=== PATIENT | male | born 1970 | race Caucasian/White ===

== ENCOUNTER 2016-10-16 15:12 | Emergency (ER) | payer MEDICAID ==
[~2016-10-16] VITALS: Ht 180.3 cm; Wt 112.0 kg
[2016-10-16 15:47] VITALS: BP 142/74
[2016-10-16] MEDS ORDERED: TETANUS-DIPTH-ACEL PERTUSSIS 0.5ML SYRG IM ONE (16:30)
== END 2016-10-16 16:54 | disposition home or self-care (01) ==
LOC: ER 15:25
DX: S61.305A Unspecified open wound of left ring finger with damage to nail, initial encounter (principal); E78.5 Hyperlipidemia, unspecified; I10 Essential (primary) hypertension; Z23 Encounter for immunization; Z87.891 Personal history of nicotine dependence; W26.0XXA Contact with knife, initial encounter; Y93.89 Activity, other specified; Y99.8 Other external cause status; Y92.89 Other specified places as the place of occurrence of the external cause
CPT/HCPCS: 90471; 90715

== ENCOUNTER 2024-12-03 15:22 | Inpatient (IN) | payer MEDICAID ==
[~2024-12-03] VITALS: Ht 180.3 cm; Wt 110.0 kg
--- NOTE | 2024-12-03 16:58 | ED.PDOC ---
GI ASSESSMENT HPI Comments This is a 54 year old male presenting to the ED with chief complaint of abdominal pain. Patient reports that he has been experiencing lower abdominal pain for the past 2 days, noting a 6/10 in pain. Patient relays that his pain is now a 5/10. Patient denies any N/V/D, fever, chills, or blood in his stools. Chief Complaint: Abdominal Pain Time Seen by MD: 16:57 Primary Care Provider: NONE Reviewed Notes: Nurses Notes, Medications, Allergies Allergies: Coded Allergies: NO KNOWN ALLERGIES (Unverified , 07/27/13) Information Source: Patient Mode of Arrival: Ambulatory Timing: Days Duration: Since onset Prehospital treatment: None Quality: Aching Vomitus: None Stool: Normal Severity: Moderate Recent: None Recent Hx of: None Pain Location: Suprapubic Modifying Factors: Nothing Associated sign and symptoms: Abdominal Pain Past Medical History PAST MEDICAL HISTORY: High Lipids, HTN Surgical History: Denies all surgeries Family History Family History: Reviewed,noncontributory to illness, No family hx of DM Family History (Other): HLD Social History Smoker: Quit Greater Than 1 Year Alcohol: Denies ETOH Use Drugs: Denies Drug Use Lives In: Home Constitutional: denies: chills, diaphoresis, fatigue, fever, malaise, sweats, weakness, others EENTM: denies: blurred vision, double vision, ear bleeding, ear discharge, ear drainage, ear pain, ear ringing, eye pain, eye redness, hearing loss, mouth pain, mouth swelling, nasal discharge, nose bleeding, nose congestion, nose pain, photophobia, tearing, throat pain, throat swelling, voice changes, others Respiratory: denies: cough, hemoptysis, orthopnea, SOB at rest, shortness of breath, SOB with excertion, stridor, wheezing, others Cardiovascular: denies: chest pain, dizzy spells, diaphoresis, Dyspnea on exertion, edema, irregular heart beat, left arm pain, lightheadedness, palpitations, PND, syncope, others Gastrointestinal: reports: abdominal pain; denies: abdomen distended, blood streaked bowels, constipated, diarrhea, dysphagia, difficulty swallowing, hematemesis, melena, nausea, poor appetite, poor fluid intake, rectal bleeding, rectal pain, vomiting, others Genitourinary: denies: burning, dysuria, flank pain, frequency, hematuria, incontinence, penile discharge, penile sore, pain, testicle pain, testicle swelling, urgency, others Neurological: denies: dizziness, fainting, headache, left sided numbness, left sided weakness, numbness, paresthesia, pre-existing deficit, right sided numbness, right sided weakness, seizure, speech problems, tingling, tremors, weakness, others Musculoskeletal: denies: back pain, gout, joint pain, joint swelling, muscle pain, muscle stiffness, neck pain, others Integumetry: denies: bruises, change in color, change in hair/nails, dryness, laceration, lesions, lumps, rash, wounds, others Allergic/Immunocompromised: denies: Difficulty Healing, Frequent Infections, Hives, Itching, others Hematologic/Lymphatic: denies: anemia, blood clots, easy bleeding, easy bruising, swollen glands, others Endocrine: denies: excessive hunger, excessive sweating, excessive thirst, excessive urination, flushing, intolerance to cold, intolerance to heat, unexplained weight gain, unexplained weight loss, others Psychiatric: denies: anxiety, bipolar disorder, depression, hopeless, panic disorder, schizophrenia, sleepless, suicidal, others All Other Systems: Reviewed and Negative Physical Exam General Appearance: Moderate Distress HEENT: Normal ENT Inspection, Pharynx Normal, TMs Normal Neck: Full Range of Motion, Non-Tender, Normal, Normal Inspection Respiratory: Chest Non-Tender, Lungs Clear, No Accessory Muscle Use, No Resp iratory Distress, Normal Breath Sounds Cardiovascular: No Edema, No JVD, No Murmur, No Gallop, Normal Peripheral Pulses, Regular Rate/Rhythm Breast Exam: Deferred Gastrointestinal: LLQ, No Organomegaly, No Pulsatile Mass, Normal Bowel Sounds, Soft, Tenderness Genitalia: Deferred Pelvic: Deferred Rectal: Deferred Extremities: No calf tenderness, Normal capillary refill, Normal inspection, Normal range of motion, Non-tender, No pedal edema Musculoskeletal : Apperance: Normal Neurologic: Alert, car washer II-XII nml as Tested, No Motor Deficits, Normal Affect, Normal Mood, No Sensory Deficits Cerebellar Function: Normal Reflexes: Normal Skin: Dry, Normal Color, Warm Lymphatic: No Adenopathy Was a procedure done? Was a procedure done?: No GI differential Dx Differential Diagnosis: Diverticular disease, Gastritis/PUD, Gastroenteritis, Ischemic Bowel, Pancreatitis, UTI, Electrolyte Imbalance, Food Poisoning X-Ray, Labs, Meds, VS Vital Signs Date Time Temp Pulse Resp B/P (MAP) Pulse Ox O2 Delivery O2 Flow Rate FiO2 12/03/24 18:37 98.0 91 16 118/77 (91) 98 98.0 12/03/24 15:23 98.1 85 16 147/72 97 98.1 Lab Test 12/03/24 17:23 Range/Units White Blood Count 13.2 H 4.4-10.8 10^3/uL Red Blood Count 5.54 4.5-5.90 10^6/uL Hemoglobin 16.5 13.5-17.5 g/dL Hematocrit 48.5 41.0-53.0 % Mean Corpuscular Volume 87.5 80.0-100.0 fL Mean Corpuscular Hemoglobin 29.8 28.0-32.0 pg Mean Corpuscular Hemoglobin Concent 34.0 32.0-36.0 g/dL Red Cell Distribution Width 14.2 11.8-14.3 % Platelet Count 310 140-450 10^3/uL Mean Platelet Volume 8.0 6.9-10.8 fL Neutrophils (%) (Auto) 73.5 37.0-80.0 % Lymphocytes (%) (Auto) 15.5 10.0-50.0 % Monocytes (%) (Auto) 8.8 0.0-12.0 % Eosinophils (%) (Auto) 1.8 0.0-7.0 % Basophils (%) (Auto) 0.4 0.0-2.0 % Neutrophils # (Auto) 9.7 H 1.6-8.6 10 ^3/uL Lymphocytes # (Auto) 2.0 0.4-5.4 10 ^3/uL Monocytes # (Auto) 1.2 0-1.3 10 ^3/uL Eosinophils # (Auto) 0.2 0-0.8 10 ^3/uL Basophils # (Auto) 0.1 0-0.2 10 ^3/uL Nucleated Red Blood Cells 0.0 % Sodium Level 137 136-145 mmol/L Potassium Level 4.5 3.5-5.1 mmol/L Chloride Level 99 98-107 mmol/L Carbon Dioxide Level 28 20-31 mmol/L Anion Gap 10 5-15 Blood Urea Nitrogen 7 L 9-23 mg/dL Creatinine 0.94 0.700-1.30 mg/dL Glomerular Filtration Rate Calc 96 >90 mL/min BUN/Creatinine Ratio 7.4 L 10.0-20.0 Serum Glucose 115 H 74-106 mg/dL Calcium Level 9.9 8.7-10.4 mg/dL Lipase 37 12-53 U/L Current Medications Medications (Trade) Dose Ordered Sig/Beto Route Start Time Stop Time Status Last Admin Sodium Chloride 500 ml @ 500 mls/hr Q1H ONCE IVB 12/03/24 17:00 12/03/24 17:59 DC 12/03/24 18:45 Ondansetron HCl (Zofran) 4 mg ONCE ONCE IV 12/03/24 18:15 12/03/24 18:16 DC 12/03/24 18:45 Metronidazole 100 ml @ 100 mls/hr ONCE ONCE IV 12/03/24 18:15 12/03/24 19:14 12/03/24 18:47 Ketorolac Tromethamine (Toradol Injection) 30 mg ONCE ONCE IV 12/03/24 18:45 12/03/24 18:46 DC 12/03/24 18:48 IV Hep-Lock was established. The patient was given normal saline at a 500 cc bolus. The patient was given Zofran 4 mg IV push for the nausea The patient was given ketorolac 30 mg IV push for the pain The patient's CBC shows an elevated white blood cell count of 13.2 The chemistry panel is within normal limits The CAT scan of the abdomen and pelvis shows: IMPRESSION: 1. Inflammatory stranding along the mesenteric margin of the mid sigmoid colon compatible with epiploic appendagitis versus diverticulitis. The patient is still having persistent pain The patient is being admitted to the hospitalist with a diagnosis of intractable abdominal pain and diverticulitis Images Reviewed?: Images reviewed and evaluated by me Time of 1ST Reevaluation: 18:59 Reevaluation 1ST: Unchanged Patient Education/Counseling: Diagnosis, Treatment, Prognosis Family Education/Counseling: No Family Present SEPSIS Sepsis Screen Date sepsis recognized/suspect: Dec 03, 2024 Time Sepsis recognized/suspect: 1523 Recent Procedure: No On Antibiotic Therapy: No Respiratory Rate >20: No Heart Rate >90: No Temp<36 C (96.8 F) or >38.3 C: No SBP <90 or MAP <65 mmHG: No New Acute Mental Status Change: No Is the patient on CPAP, BIPAP,: No Physician Orders Urinalysis (12/03/24 16:50) Ct Ab Pel Wo Con-No Oral Or Iv (12/03/24 16:50) Heplock Iv (12/03/24 16:50) Metronidazole 500mg/100ml (Flagyl 500mg/ (12/03/24 18:15) Vital Signs Date Time Temp Pulse Resp B/P (MAP) Pulse Ox O2 Delivery O2 Flow Rate FiO2 12/03/24 18:37 98.0 91 16 118/77 (91) 98 98.0 12/03/24 15:23 98.1 85 16 147/72 97 98.1 Laboratory Tests Test 12/03/24 17:23 White Blood Count 13.2 10^3/uL (4.4-10.8) H Medications Medications Dose Ordered Sig/Beto Route Start Time Stop Time Status Last Admin Dose Admin Ketorolac Tromethamine 30 mg ONCE ONCE IV 12/03/24 18:45 12/03/24 18:46 DC 12/03/24 18:48 Metronidazole 100 ml @ 100 mls/hr ONCE ONCE IV 12/03/24 18:15 12/03/24 19:14 12/03/24 18:47 Ondansetron HCl 4 mg ONCE ONCE IV 12/03/24 18:15 12/03/24 18:16 DC 12/03/24 18:45 Sodium Chloride 500 ml @ 500 mls/hr Q1H ONCE IVB 12/03/24 17:00 12/03/24 17:59 DC 12/03/24 18:45 Departure 1 Departure Time of Disposition: 18:59 Impression: Primary Impression: Intractable abdominal pain Additional Impression: Acute diverticulitis Disposition: ADMITTED INPATIENT Admit to: Med Surg Condition: Fair Critical Care Note Critical Care Time?: No Stability Stability form required: No Heart Score Heart Score: Heart Score Response (Comments) Value History N/A 0 EKG N/A 0 Age N/A 0 Risk Factors N/A 0 Troponin N/A 0 Total 0 I personally scribed for MOOKIE ANGUIANO MD ([email or web address]) on 12/03/24 at 16:58. Electronically submitted by Nain [email or web address]). MOOKIE ANGUIANO MD Dec 03, 2024 16:58
--- NOTE | 2024-12-03 17:39 | DVH ---
EXAM: CT CT AB PEL WO CON-NO ORAL OR IV INDICATION: pain TECHNIQUE: Volumetric multidetector CT images of the abdomen and pelvis were obtained without contras t. All CT scans at this facility use dose modulation, iterative reconstruction, and/or weight based d osing when appropriate to reduce radiation dose to as low as reasonably achievable. COMPARISON: None FINDINGS: [LOWER CHEST]: The partially visualized lung bases are clear without a pleural effusion. The cardiac size is normal without pericardial effusion. [LIVER]: Hepatic steatosis [GALLBLADDER AND BILIARY TREE]: No cholelithiasis. [SPLEEN]: Unremarkable. [PANCREAS]: Unremarkable. [ADRENAL GLANDS]: Unremarkable [KIDNEYS]: No hydronephrosis. No nephroureterolithiasis. No suspicious focal lesion. [BLADDER]: Unremarkable for the degree distention. [REPRODUCTIVE ORGANS]: Unremarkable. [BOWEL/MESENTERY]: Stomach is normal. Significant inflammatory stranding compatible with the appearan ce of epiploic appendagitis along the mesenteric margin of the mid sigmoid colon. Alternatively this may represent diverticulitis. No intraperitoneal free air. [ASCITES]: Absent [LYMPHADENOPATHY]: No pathologically enlarged lymph nodes by CT size criteria [VASCULATURE]: No aneurysmal dilatation. [ABDOMINAL WALL]: Small fat containing bilateral inguinal hernias [MUSCULOSKELETAL]: No acute fracture or aggressive focal osseous lesion. Multifocal degenerative sandoval ge of the visualized spine. IMPRESSION: 1. Inflammatory stranding along the mesenteric margin of the mid sigmoid colon compatible with epiplo ic appendagitis versus diverticulitis.
[2024-12-03 18:02] LABS: Hematocrit 48.5 % (41.0-53.0); Hemoglobin 16.5 g/dL (13.5-17.5); Mean Corpuscular Hemoglobin 29.8 pg (28.0-32.0); Mean Corpuscular Volume 87.5 fL (80.0-100.0); Nucleated Red Blood Cells % 0.0 %
[2024-12-03 18:09] LABS: Chloride 99 mmol/L (98-107); Potassium 4.5 mmol/L (3.5-5.1); Sodium 137 mmol/L (136-145)
[2024-12-03 18:10] LABS: Anion Gap 10 (5-15); Carbon Dioxide 28 mmol/L (20-31)
[2024-12-03 18:11] LABS: Calcium 9.9 mg/dL (8.7-10.4)
[2024-12-03 18:15] LABS: BUN/Creatinine Ratio 7.4 (10.0-20.0)
[2024-12-03 18:16] LABS: Blood Urea Nitrogen 7 mg/dL (9-23); Glucose 115 mg/dL (74-106); Lipase 37 U/L (12-53)
[2024-12-03] MEDS: MORPHINE SULFATE 4 MG/ML SYR/VIAL IV ONE (18:38)
[2024-12-03] MEDS: ONDANSETRON HCL 4 MG/2 ML VIAL IV ONE (18:45)
[2024-12-03] MEDS: SODIUM CHLORIDE 0.9% 500 ML IVB ONE (18:45)
[2024-12-03] MEDS: KETOROLAC TROMETH 30 MG/ML 1ML VIAL IV ONE (18:48)
[2024-12-03] MEDS: fentaNYL CITRATE 100 MCG/2 ML VL IV ONE (23:19)
[2024-12-03] MEDS: HYDROcodone-ACET 5/325MG TAB PO ONE (23:45)
[2024-12-04] VITALS (7 sets, daily range): BP systolic 97–116; BP diastolic 57–77; PULSE 79–92; RESP 18–19; TEMP 97.3–98.3; O2SAT 93–96
--- NOTE | 2024-12-04 01:14 | DVHHP2 ---
History of Present Illness Reason for Visit: Intractable abdominal pain History of Present Illness The patient is a 54-year-old male with past medical history of hyperlipidemia and hypertension who presented to [facility] ED with complaint of abdominal pain. Patient reports he has been experiencing lower abdominal pain radiating to his back for the past 2 days, rating 6/10 numeric scale. Patient was seen and evaluated in the ED, laboratory data shows WBC 13.2, platelets 310, sodium 137, potassium 4.5, BUN seven, creatinine 0.94, glucose 115, calcium 9.9, lipase 37, blood pressure 121/76, heart rate 84, temperature 98.0 F, O2 saturation 99% on room air. Abdomen/pelvis CT revealing inflammatory stranding along the mesenteric margin of the mid sigmoid colon compatible with epiploic appendicitis versus diverticulitis. Patient was started on IV antibiotic regimen Flagyl, please see medication orders section in the computer. On my assessment, patient denied chest pain, no headache, no dizziness, no shortness of breaths, no diarrhea, no nausea, no vomiting, no fever, no chills. Patient was admitted for further evaluation and medical management. Past Medical History High Lipids, HTN Past Surgical History Denies all surgeries Family History Reviewed, noncontributory to the management of this case. Past Social History The patient lives at home, denies smoking, alcohol or illicit drugs abuse. Review of Systems Constitutional: No: Fever, Chills, Sweats, Weakness, Malaise, Other Eyes: No: Pain, Vision change, Conjunctivae inflammation, Eyelid inflammation, Other, Redness ENT: No: Ear pain, Ear discharge, Nose pain, Nose discharge, Nose congestion, Mouth pain, Mouth swelling, Throat pain, Throat swelling, Other Respiratory: No: Cough, Dry, Shortness of breath, SOB with excertion, Wheezing, Hemoptysis, Pleuritic Pain, Sputum, Wheezing, Other Cardiovascular: No: Chest Pain, Palpitations, Orthopnea, Paroxysmal Noc. Dyspnea, Edema, Lt Headedness, Other Gastrointestinal: Abdominal Pain; No: Nausea, Vomiting, Diarrhea, Constipation, Melena, Hematochezia, Other Genitourinary: No Dysuria, No Frequency, No Incontinence, No Hematuria, No Retention, No Other Musculoskeletal: back pain; No: other, neck pain, shoulder pain, arm pain, hand pain, leg pain, foot pain Skin: No: Rash, Lesions, Jaundice, Bruising, Other Neurological: No: Weakness, Numbness, Incoordination, Change in speech, Confusion, Seizures, Other Allergies: Coded Allergies: NO KNOWN ALLERGIES (Unverified , 07/27/13) Exam Vital Signs Vital Signs Date Time Temp Pulse Resp B/P (MAP) Pulse Ox O2 Delivery O2 Flow Rate FiO2 12/04/24 01:05 98.7 89 18 130/73 (92) 96 98.7 12/03/24 23:46 Room Air* 0 21 General Appearance: Alert, Oriented X3, Cooperative, No acute distress HEENT: Atraumatic, PERRLA, EOMI, Mucous membr. moist/pink Respiratory: Normal air movement Cardiovascular: Regular rate, Normal S1, Normal S2, No murmurs Abdominal: Normal bowel sounds, Soft, No tenderness, No hepatospenomegaly, No masses Extremities: No clubbing, No cyanosis, No edema, Normal pulses, No tenderness/swelling Skin: No rashes, No breakdown, No significant lesion Neuro: Normal gait, Normal speech, Strength at 5/5 X4 ext, Normal tone, Sensation intact, Cranial nerves 3-12 NL, Reflexes 2+ Psych/Mental Status: Mental status NL, Mood NL Labs/Xrays Labs Test 12/03/24 17:23 Range/Units White Blood Count 13.2 H 4.4-10.8 10^3/uL Red Blood Count 5.54 4.5-5.90 10^6/uL Hemoglobin 16.5 13.5-17.5 g/dL Hematocrit 48.5 41.0-53.0 % Mean Corpuscular Volume 87.5 80.0-100.0 fL Mean Corpuscular Hemoglobin 29.8 28.0-32.0 pg Mean Corpuscular Hemoglobin Concent 34.0 32.0-36.0 g/dL Red Cell Distribution Width 14.2 11.8-14.3 % Platelet Count 310 140-450 10^3/uL Mean Platelet Volume 8.0 6.9-10.8 fL Neutrophils (%) (Auto) 73.5 37.0-80.0 % Lymphocytes (%) (Auto) 15.5 10.0-50.0 % Monocytes (%) (Auto) 8.8 0.0-12.0 % Eosinophils (%) (Auto) 1.8 0.0-7.0 % Basophils (%) (Auto) 0.4 0.0-2.0 % Neutrophils # (Auto) 9.7 H 1.6-8.6 10 ^3/uL Lymphocytes # (Auto) 2.0 0.4-5.4 10 ^3/uL Monocytes # (Auto) 1.2 0-1.3 10 ^3/uL Eosinophils # (Auto) 0.2 0-0.8 10 ^3/uL Basophils # (Auto) 0.1 0-0.2 10 ^3/uL Nucleated Red Blood Cells 0.0 % Sodium Level 137 136-145 mmol/L Potassium Level 4.5 3.5-5.1 mmol/L Chloride Level 99 98-107 mmol/L Carbon Dioxide Level 28 20-31 mmol/L Anion Gap 10 5-15 Blood Urea Nitrogen 7 L 9-23 mg/dL Creatinine 0.94 0.700-1.30 mg/dL Glomerular Filtration Rate Calc 96 >90 mL/min BUN/Creatinine Ratio 7.4 L 10.0-20.0 Serum Glucose 115 H 74-106 mg/dL Calcium Level 9.9 8.7-10.4 mg/dL Lipase 37 12-53 U/L PATIENT: WALDEMAR GORDON ACCT: [id number] UNIT: [id number] : 1970 LOC: ER ROOM / BED: / AGE / SEX: 54 / M ADM STATUS: REG ER SERVICE 1650 ORDERING PHYSICIAN: MOOKIE ANGUIANO MD PROCEDURE(s): ABPL - CT AB PEL WO CON-NO ORAL OR IV REASON: pain ORDER NUMBER(s): [id number], ACCESSION NUMBER(s): [id number] EXAM: CT CT AB PEL WO CON-NO ORAL OR IV INDICATION: pain TECHNIQUE: Volumetric multidetector CT images of the abdomen and pelvis were obtained without contrast. All CT scans at this facility use dose modulation, iterative reconstruction, and/or weight based dosing when appropriate to reduce radiation dose to as low as reasonably achievable. COMPARISON: None FINDINGS: [LOWER CHEST]: The partially visualized lung bases are clear without a pleural effusion. The cardiac size is normal without pericardial effusion. [LIVER]: Hepatic steatosis [GALLBLADDER AND BILIARY TREE]: No cholelithiasis. [SPLEEN]: Unremarkable. [PANCREAS]: Unremarkable. [ADRENAL GLANDS]: Unremarkable [KIDNEYS]: No hydronephrosis. No nephro-ureterolithiasis. No suspicious focal lesion. [BLADDER]: Unremarkable for the degree distention. [REPRODUCTIVE ORGANS]: Unremarkable. [BOWEL/MESENTERY]: Stomach is normal. Significant inflammatory stranding compatible with the appearance of epiploic appendagitis along the mesenteric margin of the mid sigmoid colon. Alternatively this may represent diverticulitis. No intraperitoneal free air. [ASCITES]: Absent [LYMPHADENOPATHY]: No pathologically enlarged lymph nodes by CT size criteria [VASCULATURE]: No aneurysmal dilatation. [ABDOMINAL WALL]: Small fat containing bilateral inguinal hernias [MUSCULOSKELETAL]: No acute fracture or aggressive focal osseous lesion. Multifocal degenerative change of the visualized spine. IMPRESSION: 1. Inflammatory stranding along the mesenteric margin of the mid sigmoid colon compatible with epiploic appendagitis versus diverticulitis. SEPSIS Sepsis Screen Date sepsis recognized/suspect: Dec 03, 2024 Time Sepsis recognized/suspect: 1522 Recent Procedure: No On Antibiotic Therapy: No Respiratory Rate >20: No Heart Rate >90: No Temp<36 C (96.8 F) or >38.3 C: No SBP <90 or MAP <65 mmHG: No New Acute Mental Status Change: No Is the patient on CPAP, BIPAP,: No Physician Orders Complete Blood Count (12/04/24 04:00) Comprehensive Metabolic Panel (12/04/24 04:00) Ceftriaxone Ivpb Rocephin (12/04/24 09:00) Ceftriaxone Ivpb Rocephin (12/04/24 01:15) Metronidazole Ivpb Flagyl (12/04/24 06:00) Hydralazine Injection (Apresoline Inject (12/04/24 01:15) Vital Signs Date Time Temp Pulse Resp B/P (MAP) Pulse Ox O2 Delivery O2 Flow Rate FiO2 12/04/24 01:05 98.7 89 18 130/73 (92) 96 98.7 12/03/24 23:46 Room Air* 0 21 12/03/24 23:18 84 18 121/76 (91) 99 12/03/24 18:37 98.0 91 16 118/77 (91) 98 98.0 Laboratory Tests Test 12/03/24 17:23 White Blood Count 13.2 10^3/uL (4.4-10.8) H Medications Medications Dose Ordered Sig/Beto Route Start Time Stop Time Status Last Admin Dose Admin Acetaminophen/ Hydrocodone Bitart 1 tab ONCE ONCE PO 12/03/24 23:30 12/03/24 23:31 DC 12/03/24 23:45 1 TAB Ketorolac Tromethamine 30 mg ONCE ONCE IV 12/03/24 18:45 12/03/24 18:46 DC 12/03/24 18:48 30 MG Metronidazole 100 ml @ 100 mls/hr ONCE ONCE IV 12/03/24 18:15 12/03/24 19:14 DC 12/03/24 18:47 100 MLS/HR Ondansetron HCl 4 mg ONCE ONCE IV 12/03/24 18:15 12/03/24 18:16 DC 12/03/24 18:45 4 MG Sodium Chloride 500 ml @ 500 mls/hr Q1H ONCE IVB 12/03/24 17:00 12/03/24 17:59 DC 12/03/24 18:45 500 MLS/HR Assessment/Plan Assessment/Plan Intractable abdominal pain Appendicitis Acute diverticulitis Leukocytosis, unspecified Plan 1. Admit to med surge unit 2. Breathing treatment 3. Pain control management 4. IV antibiotic management 5. Management of fluids and electrolytes 6. Consultation for GI/surgery 7. Diagnostic test abdomen/pelvis CT 8. DVT prophylaxis-on SCDs 9. Repeat labs CBC, CMP in a.m. 10. Home medication reviewed and reconciled 11. Continue with current medical management 12. Treatment plan discussed with patient and RN. Patient verbalized understanding. Plan discussed with: Patient, Other (RN) My Orders Orders - YVONNE LUBIN DNP Procedure Category Date Status Time Complete Blood Count LAB 12/04/24 Verified 04:00 Comprehensive LAB 12/04/24 Verified Metabolic Panel 04:00 Ceftriaxone Ivpb PHA 12/04/24 Verified Rocephin 09:00 Ceftriaxone Ivpb PHA 12/04/24 Verified Rocephin 01:15 Metronidazole Ivpb PHA 12/04/24 Verified Flagyl 06:00 Hydralazine Injection PHA 12/04/24 Verified (Apresoline Inject 01:15 Problem List: (1) Intractable abdominal pain (2) Appendicitis (3) Acute diverticulitis (4) Leukocytosis, unspecified Date of Service: Dec 04, 2024 Billing Provider: YVONNE LUBIN DNP Common Visit Codes: [id number] INP/OBS CARE (HIGH) YVONNE LUBIN DNP Dec 04, 2024 01:14
[2024-12-04] MEDS ORDERED: ONDANSETRON HCL 4 MG/2 ML VIAL IV PRN (01:15)
[2024-12-04] MEDS ORDERED: MORPHINE SULFATE INJ 2 MG/ml SYRG IV PRN ×2 (01:15)
[2024-12-04] MEDS ORDERED: NITROGLYCERIN 0.4 MG SL TAB SL PRN (01:15)
[2024-12-04] MEDS ORDERED: hydrALAZINE HCL 20 MG/ML VL IV PRN (01:15)
[2024-12-04 02:16] LABS: Urine Protein, UAD Negative (Negative)
[2024-12-04 03:59] LABS: Hematocrit 45.2 % (41.0-53.0); Hemoglobin 15.5 g/dL (13.5-17.5); Mean Corpuscular Hemoglobin 30.3 pg (28.0-32.0); Mean Corpuscular Volume 88.2 fL (80.0-100.0); Nucleated Red Blood Cells % 0.0 %
[2024-12-04] MEDS: HYDROcodone-ACET 5/325MG TAB PO PRN (04:04)
[2024-12-04 04:12] LABS: Alanine Aminotransferase 23 U/L (7-40); Albumin 4.7 g/dL (3.2-4.8); Alkaline Phosphatase 81 U/L (46-116); Anion Gap 11 (5-15); BUN/Creatinine Ratio 6.7 (10.0-20.0); Calcium 9.8 mg/dL (8.7-10.4); Carbon Dioxide 25 mmol/L (20-31); Chloride 102 mmol/L (98-107); Potassium 4.2 mmol/L (3.5-5.1); Sodium 138 mmol/L (136-145); Total Protein 7.7 g/dL (5.7-8.2)
[2024-12-04 04:13] LABS: Bilirubin, Total 0.7 mg/dL (0.2-1.0)
[2024-12-04 04:14] LABS: Blood Urea Nitrogen 6 mg/dL (9-23); Glucose 123 mg/dL (74-106)
[2024-12-04] MEDS: SODIUM CHLORIDE 0.9% 1,000 ML IV SCH (08:46)
[2024-12-04] MEDS: ACETAMINOPHEN 325 MG TAB PO PRN (13:20)
--- NOTE | 2024-12-04 13:20 | DVHINCON2 ---
GI Consult Consult Note GI consult note Date of Consultation: 12/04/2024 Chief Complaint: Diverticulitis Referring Physician: Mildred HUA H&P: 54-year-old male admitted with complains of lower abdominal pain radiating to his back for the past three days. Patient denies fever. Has chills. Last BM one day ago, no melena or red blood in stool. No colonoscopy in past Past Medical History: High lipids, hypertension Past Surgical History: Denies Social History: NO smoking, drinking ETOH and use of illegal drugs. Family History: Noncontributory Review of Systems: Constitutional: no fever, chill, weight loss HEENT: no eye pain, no hearing loss, no oral lesion, no scleral icterus Heart: no chest pain, no chest pressure Lung: no cough, no dyspnea with exertion Abdomen: see HPI Physical exam: General: NAD, AAOX3 Chest: lung mcgrath clear to auscultation Heart: RRR, no murmur Abdomen: Lower abdomen tenderness to palpation, +BS Labs: Labs Test 12/04/24 03:24 12/03/24 23:49 12/03/24 17:23 Range/Units White Blood Count 12.1 H 4.4-10.8 10^3/uL Red Blood Count 5.12 4.5-5.90 10^6/uL Hemoglobin 15.5 13.5-17.5 g/dL Hematocrit 45.2 41.0-53.0 % Mean Corpuscular Volume 88.2 80.0-100.0 fL Mean Corpuscular Hemoglobin 30.3 28.0-32.0 pg Mean Corpuscular Hemoglobin Concent 34.3 32.0-36.0 g/dL Red Cell Distribution Width 14.2 11.8-14.3 % Platelet Count 268 140-450 10^3/uL Mean Platelet Volume 7.8 6.9-10.8 fL Neutrophils (%) (Auto) 73.2 37.0-80.0 % Lymphocytes (%) (Auto) 14.5 10.0-50.0 % Monocytes (%) (Auto) 10.4 0.0-12.0 % Eosinophils (%) (Auto) 1.5 0.0-7.0 % Basophils (%) (Auto) 0.4 0.0-2.0 % Neutrophils # (Auto) 8.9 H 1.6-8.6 10 ^3/uL Lymphocytes # (Auto) 1.8 0.4-5.4 10 ^3/uL Monocytes # (Auto) 1.3 0-1.3 10 ^3/uL Eosinophils # (Auto) 0.2 0-0.8 10 ^3/uL Basophils # (Auto) 0 0-0.2 10 ^3/uL Nucleated Red Blood Cells 0.0 % Sodium Level 138 136-145 mmol/L Potassium Level 4.2 3.5-5.1 mmol/L Chloride Level 102 98-107 mmol/L Carbon Dioxide Level 25 20-31 mmol/L Anion Gap 11 5-15 Blood Urea Nitrogen 6 L 9-23 mg/dL Creatinine 0.90 0.700-1.30 mg/dL Glomerular Filtration Rate Calc 101 >90 mL/min BUN/Creatinine Ratio 6.7 L 10.0-20.0 Serum Glucose 123 H 74-106 mg/dL Calcium Level 9.8 8.7-10.4 mg/dL Total Bilirubin 0.7 0.2-1.0 mg/dL Aspartate Amino Transferase (AST) 12 L 13-40 U/L Alanine Aminotransferase (ALT) 23 7-40 U/L Alkaline Phosphatase 81 46-116 U/L Total Protein 7.7 5.7-8.2 g/dL Albumin 4.7 3.2-4.8 g/dL Urine Color Light-yellow Yellow Urine Clarity Clear Clear Urine pH 6.5 5.0-9.0 Urine Specific [place] 1.011 1.001-1.035 Urine Protein Negative Negative Urine Ketones Negative Negative Urine Blood Negative Negative /uL Urine Nitrite Negative Negative Urine Bilirubin Negative Negative Urine Urobilinogen Normal Negative mg/dL Urine Leukocyte Esterase Negative Negative /uL Urine RBC <1 0 - 3 /hpf Urine Microscopic WBC < 1 0-3 /HPF Urine Squamous Epithelial Cells Few <5 /hpf Urine Bacteria None seen None Seen /hpf Urine Glucose Normal Normal mg/dL Lipase 37 12-53 U/L Imaging: CT abdomen pelvis IMPRESSION: 1. Inflammatory stranding along the mesenteric margin of the mid sigmoid colon compatible with epiploic appendagitis versus diverticulitis. Assessment: Abdominal pain Abnormal CT results Possible sigmoid colon epiploic appendagitis versus diverticulitis Plan: Discussed with Dr. Domingo Continue IV antibiotics Surgical consult pending We will continue to follow patient Outpatient colonoscopy recommended at this time Plan discussed with patient and at bedside Thank you for this consult Date of Service: Dec 04, 2024 Billing Provider: SALVAOTRE PHILLIP Common Visit Codes: CONSULT ONLY Consultation Codes: [id number] CONSULT <60MIN SALVATORE PHILLIP Dec 04, 2024 13:20
--- NOTE | 2024-12-04 15:53 | DVHINCON2 ---
Date of service: Dec 04, 2024 Family History: FH: diabetes mellitus FH: hypertension Allergies: Coded Allergies: NO KNOWN ALLERGIES (Unverified , 07/27/13) Current Medications Current Medications Medications (Trade) Dose Ordered Sig/Beto Route PRN Reason Start Time Stop Time Status Last Admin Ceftriaxone Sodium 50 ml @ 100 mls/hr DAILY@09 IV 12/05/24 09:00 Metronidazole 100 ml @ 100 mls/hr Q8HR IV 12/04/24 06:00 12/04/24 13:38 Hydralazine HCl (Apresoline Injection) 10 mg Q6HP PRN IV SBP>150 12/04/24 01:15 Sodium Chloride 1,000 ml @ 60 mls/hr [id number] IV 12/04/24 01:15 12/04/24 08:46 Acetaminophen/ Hydrocodone Bitart ([place] 5/325MG Tab) 1 tab Q4HP PRN PO MODERATE PAIN (4-6 PAIN SCALE) 12/04/24 01:15 12/04/24 08:02 Ondansetron HCl (Zofran) 4 mg Q4HP PRN IV NAUSEA / VOMITING 12/04/24 01:15 Acetaminophen (Tylenol Tablet) 650 mg Q6HP PRN PO PAIN SCALE 1-3 OR TEMP>100.4 12/04/24 01:15 12/04/24 13:20 Morphine Sulfate 2 mg Q4HPRN PRN IV SEVERE PAIN (7-10 PAIN SCALE) 12/04/24 01:15 Nitroglycerin (Ntrostat Sublingual) 0.4 mg Q5MINP PRN SL FOR CHEST PAIN 12/04/24 01:15 Morphine Sulfate 2 mg Q30M PRN IV FOR CHEST PAIN 12/04/24 01:15 Vital Signs Vital Signs Date Time Temp Pulse Resp B/P (MAP) Pulse Ox O2 Delivery O2 Flow Rate FiO2 12/04/24 13:20 98.5 12/04/24 13:09 92 18 116/77 (90) 95 12/04/24 08:00 Room Air* 0 21 Labs/Diagnostic Data Labs Test 12/04/24 03:24 12/03/24 23:49 12/03/24 17:23 Range/Units White Blood Count 12.1 H 4.4-10.8 10^3/uL Red Blood Count 5.12 4.5-5.90 10^6/uL Hemoglobin 15.5 13.5-17.5 g/dL Hematocrit 45.2 41.0-53.0 % Mean Corpuscular Volume 88.2 80.0-100.0 fL Mean Corpuscular Hemoglobin 30.3 28.0-32.0 pg Mean Corpuscular Hemoglobin Concent 34.3 32.0-36.0 g/dL Red Cell Distribution Width 14.2 11.8-14.3 % Platelet Count 268 140-450 10^3/uL Mean Platelet Volume 7.8 6.9-10.8 fL Neutrophils (%) (Auto) 73.2 37.0-80.0 % Lymphocytes (%) (Auto) 14.5 10.0-50.0 % Monocytes (%) (Auto) 10.4 0.0-12.0 % Eosinophils (%) (Auto) 1.5 0.0-7.0 % Basophils (%) (Auto) 0.4 0.0-2.0 % Neutrophils # (Auto) 8.9 H 1.6-8.6 10 ^3/uL Lymphocytes # (Auto) 1.8 0.4-5.4 10 ^3/uL Monocytes # (Auto) 1.3 0-1.3 10 ^3/uL Eosinophils # (Auto) 0.2 0-0.8 10 ^3/uL Basophils # (Auto) 0 0-0.2 10 ^3/uL Nucleated Red Blood Cells 0.0 % Sodium Level 138 136-145 mmol/L Potassium Level 4.2 3.5-5.1 mmol/L Chloride Level 102 98-107 mmol/L Carbon Dioxide Level 25 20-31 mmol/L Anion Gap 11 5-15 Blood Urea Nitrogen 6 L 9-23 mg/dL Creatinine 0.90 0.700-1.30 mg/dL Glomerular Filtration Rate Calc 101 >90 mL/min BUN/Creatinine Ratio 6.7 L 10.0-20.0 Serum Glucose 123 H 74-106 mg/dL Calcium Level 9.8 8.7-10.4 mg/dL Total Bilirubin 0.7 0.2-1.0 mg/dL Aspartate Amino Transferase (AST) 12 L 13-40 U/L Alanine Aminotransferase (ALT) 23 7-40 U/L Alkaline Phosphatase 81 46-116 U/L Total Protein 7.7 5.7-8.2 g/dL Albumin 4.7 3.2-4.8 g/dL Urine Color Light-yellow Yellow Urine Clarity Clear Clear Urine pH 6.5 5.0-9.0 Urine Specific [place] 1.011 1.001-1.035 Urine Protein Negative Negative Urine Ketones Negative Negative Urine Blood Negative Negative /uL Urine Nitrite Negative Negative Urine Bilirubin Negative Negative Urine Urobilinogen Normal Negative mg/dL Urine Leukocyte Esterase Negative Negative /uL Urine RBC <1 0 - 3 /hpf Urine Microscopic WBC < 1 0-3 /HPF Urine Squamous Epithelial Cells Few <5 /hpf Urine Bacteria None seen None Seen /hpf Urine Glucose Normal Normal mg/dL Lipase 37 12-53 U/L Assessment [id number] C/O LLQ PAIN NOW BETTER AFEBRILE VSS ABD SOFT MILD TENDERNESS LLQ NO REBOUND NON TENDER RLQ CT SCAN POSSIBLE UNCOMPLICATED DIVERTICULITIS NO CLINICAL OR RADIOLOGIC CONFIRMATION FOR AC APPENDICITIS CLOSE OBSERVATION CONSIDER EMERGENT SURGERY BASED ON ONGOING EVAL Plan discussed with: Patient JESSE NGUYEN MD Dec 04, 2024 15:53
--- NOTE | 2024-12-04 19:25 | DVHINCON2 ---
DATE OF CONSULTATION: 12/04/2024 HISTORY OF PRESENT ILLNESS: This patient is 54 years old coming with lower abdominal pain, mostly on the left side for the past 3 days, now feeling better. She has some nausea, but no vomiting. No constipation or diarrhea. No hematochezia or melena. No bleeding per rectum. PAST MEDICAL HISTORY: No diabetes, but he has hypertension. PAST SURGICAL HISTORY: No significant surgical history. PHYSICAL EXAMINATION: VITAL SIGNS: Afebrile, stable signs. HEENT: No evidence of pallor, cyanosis, or jaundice. NECK: Supple and nontender with no thyromegaly or lymphadenopathy. CHEST AND LUNGS: Clear. HEART: Within normal limites. ABDOMEN: Soft, nontender in the right upper quadrant, left upper quadrant, and the right lower quadrant, mostly it is a moderate amount of pain in the left lower quadrant with no rebound. EXTREMITIES: Unremarkable. NEUROLOGIC: He is intact. CLINICAL IMPRESSION: Possible diverticulitis as per the CAT scan and clinically and radiologically not confirmed for acute appendicitis. PLAN: To keep him in a close observation, keep him n.p.o. Give him intravenous antibiotics, and possibly repeat the CAT scan of the abdomen and pelvis to determine the need for surgery if appendicitis is an issue. MD MYLENE Roger/SHALONDA TID: [id number] RECEIPT: [id number]
[2024-12-05] VITALS (8 sets, daily range): BP systolic 101–127; BP diastolic 61–85; PULSE 68–90; RESP 18–20; TEMP 97.6–98.3; O2SAT 93–96
[2024-12-05 07:06] LABS: Hematocrit 44.7 % (41.0-53.0); Hemoglobin 15.7 g/dL (13.5-17.5); Mean Corpuscular Hemoglobin 30.6 pg (28.0-32.0); Mean Corpuscular Volume 87.4 fL (80.0-100.0); Nucleated Red Blood Cells % 0.0 %
[2024-12-05 07:18] LABS: Alanine Aminotransferase 24 U/L (7-40); Alkaline Phosphatase 76 U/L (46-116); Anion Gap 13 (5-15); BUN/Creatinine Ratio 7.5 (10.0-20.0); Calcium 9.5 mg/dL (8.7-10.4); Carbon Dioxide 25 mmol/L (20-31); Chloride 101 mmol/L (98-107); Glucose 89 mg/dL (74-106); Potassium 3.9 mmol/L (3.5-5.1); Sodium 139 mmol/L (136-145); Total Protein 7.5 g/dL (5.7-8.2)
[2024-12-05 07:19] LABS: Albumin 4.5 g/dL (3.2-4.8); Bilirubin, Total 0.6 mg/dL (0.2-1.0); Blood Urea Nitrogen 6 mg/dL (9-23)
--- NOTE | 2024-12-05 13:01 | DVHPN2 ---
Progress Note Date Seen: Dec 05, 2024 Medical Necessity Reason Pt with a Central, PICC or Fol: No Objective vital signs Vital Sign Date Time Temp Pulse Resp B/P (MAP) Pulse Ox O2 Delivery O2 Flow Rate FiO2 12/05/24 09:00 97.6 76 20 101/61 (74) 95 97.6 12/05/24 08:00 Room Air* 0 21 Total Intake and Output 12/04/24 12/04/24 12/05/24 15:00 23:00 07:00 Intake Total 300 ml 0 ml Balance 300 ml 0 ml medications Current Medications Medications Dose Ordered Sig/Beto Route Start Time Stop Time Status Last Admin Dose Admin Hydralazine HCl 10 mg Q6HP PRN IV 12/04/24 01:15 Sodium Chloride 1,000 ml @ 60 mls/hr [id number] IV 12/04/24 01:15 12/05/24 10:36 60 MLS/HR Acetaminophen/ Hydrocodone Bitart 1 tab Q4HP PRN PO 12/04/24 01:15 12/04/24 08:02 1 TAB Ondansetron HCl 4 mg Q4HP PRN IV 12/04/24 01:15 Acetaminophen 650 mg Q6HP PRN PO 12/04/24 01:15 12/04/24 20:23 650 MG Morphine Sulfate 2 mg Q4HPRN PRN IV 12/04/24 01:15 Nitroglycerin 0.4 mg Q5MINP PRN SL 12/04/24 01:15 Morphine Sulfate 2 mg Q30M PRN IV 12/04/24 01:15 Ceftriaxone Sodium 50 ml @ 100 mls/hr DAILY@09 IV 12/04/24 16:00 12/05/24 10:34 100 MLS/HR Docusate Sodium 100 mg BID PO 12/05/24 22:00 laboratory and microbiology Laboratory Tests 12/05/24 06:20 Test 12/05/24 06:20 Range/Units Serum Glucose 89 74-106 mg/dL Problem List/Assessment/Plan Problem List/Assessment/Plan AFEBRILE VSS ABD SOFT NO BM FLATUS + LESS PAIN ALLOW CLEAR LIQUIDS CLOSE OBSERVATION Plan discussed with: Patient My Orders My Orders Orders - JESSE NGUYEN MD Procedure Category Date Status Time Ceftriaxone 1gm/50ml PHA 12/04/24 In Process (Rocephin) 16:00 Clear Liq Diet DIET 12/05/24 Transmitted Lunch JESSE NGUYEN MD Dec 05, 2024 13:01
--- NOTE | 2024-12-05 15:13 | DVHPN2 ---
Subjective The patient seen and examined at bedside. The patient still complain of abdominal pain. Reviewed: Care Plan, H&P, Labs, Medications, Previous Orders, Radiology Changes from previous H/P or p: No Changes Eyes: No Pain, No Vision change, No Conjunctivae inflammation, No Eyelid inflammation, No Other, No Redness ENT: No Ear pain, No Ear discharge, No Nose pain, No Nose discharge, No Nose congestion, No Mouth pain, No Mouth swelling, No Throat pain, No Throat swelling, No Other Cardiovascular: No Chest Pain, No Palpitations, No Orthopnea, No Paroxysmal Noc. Dyspnea, No Edema, No Lt Headedness, No Other Respiratory: No Cough, No Dry, No Shortness of breath, No SOB with excertion, No Wheezing, No Hemoptysis, No Pleuritic Pain, No Sputum, No Other Gastrointestinal: No Nausea, No Vomiting; Abdominal Pain; No Diarrhea, No Constipation, No Melena, No Hematochezia, No Other Genitourinary: No Dysuria, No Frequency, No Incontinence, No Hematuria, No Retention, No Other Musculoskeletal: No other, No neck pain, No shoulder pain, No arm pain; back pain; No hand pain, No leg pain, No foot pain Skin: No Rash, No Lesions, No Jaundice, No Bruising, No Other Objective Vitals Vital Signs Date Time Temp Pulse Resp B/P (MAP) Pulse Ox O2 Delivery O2 Flow Rate FiO2 12/05/24 13:00 97.7 75 20 121/85 (97) 95 97.7 12/05/24 08:00 Room Air* 0 21 Intake/Output Intake and Output 12/05/24 07:00 Intake Total 300 ml Balance 300 ml Intake Oral 300 ml # Voids 6 General Appearance: Alert, Oriented X3, Cooperative, No acute distress HEENT: Atraumatic, PERRLA, EOMI, Mucous membr. moist/pink Neck: Supple Lungs: Clear to auscultation, Normal air movement Cardiovascular: Regular rate, Normal S1, Normal S2, No murmurs, Gallops, Rubs Abdomen: Normal bowel sounds, Soft, No tenderness Neuro: Cranial nerves 3-12 NL Psych/Mental Status: Mental status NL Medications Current Medications Medications Dose Ordered Sig/Beto Route Start Time Stop Time Status Last Admin Dose Admin Hydralazine HCl 10 mg Q6HP PRN IV 12/04/24 01:15 Sodium Chloride 1,000 ml @ 60 mls/hr [id number] IV 12/04/24 01:15 12/05/24 10:36 60 MLS/HR Acetaminophen/ Hydrocodone Bitart 1 tab Q4HP PRN PO 12/04/24 01:15 12/04/24 08:02 1 TAB Ondansetron HCl 4 mg Q4HP PRN IV 12/04/24 01:15 Acetaminophen 650 mg Q6HP PRN PO 12/04/24 01:15 12/05/24 13:41 650 MG Morphine Sulfate 2 mg Q4HPRN PRN IV 12/04/24 01:15 Nitroglycerin 0.4 mg Q5MINP PRN SL 12/04/24 01:15 Morphine Sulfate 2 mg Q30M PRN IV 12/04/24 01:15 Ceftriaxone Sodium 50 ml @ 100 mls/hr DAILY@09 IV 12/04/24 16:00 12/05/24 10:34 100 MLS/HR Docusate Sodium 100 mg BID PO 12/05/24 22:00 Laboratory Results Laboratory Tests 12/05/24 06:20 Chemistry Test 12/05/24 06:20 Albumin 4.5 g/dL (3.2-4.8) Calcium Level 9.5 mg/dL (8.7-10.4) Total Protein 7.5 g/dL (5.7-8.2) LFT Test 12/05/24 06:20 Alanine Aminotransferase (ALT) 24 U/L (7-40) Alkaline Phosphatase 76 U/L (46-116) Aspartate Amino Transferase (AST) 16 U/L (13-40) Total Bilirubin 0.6 mg/dL (0.2-1.0) Urinalysis Test 12/03/24 23:49 Urine Color Light-yellow (Yellow) Urine Clarity Clear (Clear) Urine pH 6.5 (5.0-9.0) Urine Specific [place] 1.011 (1.001-1.035) Urine Protein Negative (Negative) Urine Ketones Negative (Negative) Urine Blood Negative /uL (Negative) Urine Nitrite Negative (Negative) Urine Bilirubin Negative (Negative) Urine Urobilinogen Normal mg/dL (Negative) Urine Leukocyte Esterase Negative /uL (Negative) Urine RBC <1 /hpf (0 - 3) Urine Microscopic WBC < 1 /HPF (0-3) Urine Squamous Epithelial Cells Few /hpf (<5) Urine Bacteria None seen /hpf (None Seen) Urine Glucose Normal mg/dL (Normal) Labs and/or images reviewed: Labs reviewed by me Assessment/Plan Assessment/Plan Intractable abdominal pain Appendicitis Acute diverticulitis Leukocytosis, unspecified Continuing current management. Continuing with IV antibiotic. Appreciate GI input. Continuing IV pain medication. Waiting for surgeon to see the patient. This medical document was created using an electronic medical record system with [email or web address] direct computerized dictation system. Although this document has been carefully reviewed, there may still be some phonetic and typographical errors. These areas are purely typographical due to imperfections of the software programs, and do not reflect any compromise in the patient's medical care. Plan discussed with: Patient Date of Service: Dec 05, 2024 Billing Provider: MARQUES SHELTON MD Common Visit Codes: [id number] INP/OBS CARE(HIGH) MARQUES SHELTON MD Dec 05, 2024 15:13
--- NOTE | 2024-12-05 16:18 | DVHPN2 ---
Progress Note - Dictate Date Seen: Dec 05, 2024 Medical Necessity Reason Pt with a Central, PICC or Fol: No Subjective Patient seen at bedside, no new complaints His abdominal pain has improving No bowel movement yet since admission No prior colonoscopy vital signs Vital Sign Date Time Temp Pulse Resp B/P (MAP) Pulse Ox O2 Delivery O2 Flow Rate FiO2 12/05/24 13:00 97.7 75 20 121/85 (97) 95 97.7 12/05/24 08:00 Room Air* 0 21 Total Intake and Output 12/04/24 12/04/24 12/05/24 15:00 23:00 07:00 Intake Total 300 ml 0 ml Balance 300 ml 0 ml medications Current Medications Medications Dose Ordered Sig/Beto Route Start Time Stop Time Status Last Admin Dose Admin Hydralazine HCl 10 mg Q6HP PRN IV 12/04/24 01:15 Sodium Chloride 1,000 ml @ 60 mls/hr [id number] IV 12/04/24 01:15 12/05/24 10:36 60 MLS/HR Acetaminophen/ Hydrocodone Bitart 1 tab Q4HP PRN PO 12/04/24 01:15 12/04/24 08:02 1 TAB Ondansetron HCl 4 mg Q4HP PRN IV 12/04/24 01:15 Acetaminophen 650 mg Q6HP PRN PO 12/04/24 01:15 12/05/24 13:41 650 MG Morphine Sulfate 2 mg Q4HPRN PRN IV 12/04/24 01:15 Nitroglycerin 0.4 mg Q5MINP PRN SL 12/04/24 01:15 Morphine Sulfate 2 mg Q30M PRN IV 12/04/24 01:15 Ceftriaxone Sodium 50 ml @ 100 mls/hr DAILY@09 IV 12/04/24 16:00 12/05/24 10:34 100 MLS/HR Docusate Sodium 100 mg BID PO 12/05/24 22:00 objective General: NAD, AAOX3 Chest: lung mcgrath clear to auscultation Heart: RRR, no murmur Abdomen: Lower abdomen tenderness to palpation, +BS laboratory and microbiology Laboratory Tests 12/05/24 06:20 Test 12/05/24 06:20 Range/Units Serum Glucose 89 74-106 mg/dL Problems(with codes): (1) Leukocytosis, unspecified (2) Acute diverticulitis (3) Intractable abdominal pain Prognosis Plan Patient either has localized diverticulitis or epiploic appendagitis Symptoms are improving with IV antibiotics Start ice chips and clear liquids if cleared by surgical consult Continue to monitor labs IV Flagyl cause nausea Further recommendations pending clinical progress Patient was advised outpatient follow up with me in 4-6 weeks to discuss elective colonoscopy Start him on stool softeners Colace 100 mg p.o. twice a day Ambulate patient Plan discussed with: Patient, Other (Nurse and Dr Vincent Domingo) VAN DOMINGO MD Dec 05, 2024 16:18
[2024-12-05] MEDS: DOCUSATE SOD 100 MG CAP PO SCH (21:16)
[2024-12-06] VITALS (8 sets, daily range): BP systolic 106–127; BP diastolic 57–91; PULSE 64–74; RESP 17–20; TEMP 97.1–98.6; O2SAT 95–97
[2024-12-06 07:17] LABS: Hematocrit 43.5 % (41.0-53.0); Hemoglobin 15.4 g/dL (13.5-17.5); Mean Corpuscular Hemoglobin 31.0 pg (28.0-32.0); Mean Corpuscular Volume 87.8 fL (80.0-100.0); Nucleated Red Blood Cells % 0.0 %
[2024-12-06 07:29] LABS: Chloride 102 mmol/L (98-107); Potassium 4.1 mmol/L (3.5-5.1); Sodium 138 mmol/L (136-145)
[2024-12-06 07:30] LABS: Anion Gap 10 (5-15); Calcium 9.4 mg/dL (8.7-10.4); Carbon Dioxide 26 mmol/L (20-31)
[2024-12-06 07:35] LABS: BUN/Creatinine Ratio 12.2 (10.0-20.0); Glucose 85 mg/dL (74-106)
[2024-12-06 07:36] LABS: Blood Urea Nitrogen 9 mg/dL (9-23)
[2024-12-06] MEDS: OMNIPAQUE 12mg/ml 500ml ORAL SOLUTION PO ONE (10:38)
--- NOTE | 2024-12-06 14:09 | DVHPN2 ---
Progress Note - Dictate Date Seen: Dec 06, 2024 Medical Necessity Reason Pt with a Central, PICC or Fol: No Subjective No new complaints His abdominal pain has improving No bowel movement yet since admission No prior colonoscopy vital signs Vital Sign Date Time Temp Pulse Resp B/P (MAP) Pulse Ox O2 Delivery O2 Flow Rate FiO2 12/06/24 09:00 97.3 73 20 113/64 (80) 97 97.3 12/06/24 08:00 Room Air* 0 21 Total Intake and Output 12/05/24 12/05/24 12/06/24 15:00 23:00 07:00 Intake Total 0 ml 400 ml 910 ml Balance 0 ml 400 ml 910 ml medications Current Medications Medications Dose Ordered Sig/Beto Route Start Time Stop Time Status Last Admin Dose Admin Hydralazine HCl 10 mg Q6HP PRN IV 12/04/24 01:15 Sodium Chloride 1,000 ml @ 60 mls/hr [id number] IV 12/04/24 01:15 12/06/24 03:05 60 MLS/HR Acetaminophen/ Hydrocodone Bitart 1 tab Q4HP PRN PO 12/04/24 01:15 12/04/24 08:02 1 TAB Ondansetron HCl 4 mg Q4HP PRN IV 12/04/24 01:15 Acetaminophen 650 mg Q6HP PRN PO 12/04/24 01:15 12/05/24 13:41 650 MG Morphine Sulfate 2 mg Q4HPRN PRN IV 12/04/24 01:15 Nitroglycerin 0.4 mg Q5MINP PRN SL 12/04/24 01:15 Morphine Sulfate 2 mg Q30M PRN IV 12/04/24 01:15 Ceftriaxone Sodium 50 ml @ 100 mls/hr DAILY@09 IV 12/04/24 16:00 12/06/24 09:22 100 MLS/HR Docusate Sodium 100 mg BID PO 12/05/24 22:00 12/06/24 09:22 100 MG objective General: NAD, AAOX3 Chest: lung mcgrath clear to auscultation Heart: RRR, no murmur Abdomen: Lower abdomen tenderness to palpation, +BS laboratory and microbiology Laboratory Tests 12/06/24 06:03 Test 12/06/24 06:03 Range/Units Serum Glucose 85 74-106 mg/dL Problems(with codes): (1) Leukocytosis, unspecified (2) Acute diverticulitis (3) Intractable abdominal pain Prognosis Plan Patient either has localized diverticulitis or epiploic appendagitis Symptoms are improving with IV antibiotics Advance to full liquid diet as cleared by surgical consult Patient was advised outpatient follow up with me in 4-6 weeks to discuss elective colonoscopy Start him on stool softeners Colace 100 mg p.o. twice a day Ambulate patient Plan discussed with: Other (Dr Vincent Domingo) VAN DOMINGO MD Dec 06, 2024 14:09
--- NOTE | 2024-12-06 14:15 | DVH ---
COMPUTERIZED TOMOGRAPHY ABDOMEN AND PELVIS WITHOUT CONTRAST REASON FOR EXAM: Abdominal pain COMPARISON: CT CT AB PEL WO CON-NO ORAL OR IV on DOS: 12/03/24 TECHNIQUE: Spiral scans were acquired from the diaphragm to the symphysis pubis without intravenous c ontrast administration. 2-D coronal and sagittal reformatted images were provided. Radiation optimiza tion: All CT scans at this facility use at least one of these dose optimization techniques: Automated exposure control mA and/or kV adjustment per patient size (includes targeted exams where dose is mat ched to clinical indication) or iterative reconstruction. Gastrografin was administered by mouth. RADIATION DOSE: CTDI: 17.34 mGy DLP: 1020.79 mGy-cm FINDINGS: There is mild scattered linear atelectasis at the visualized lung bases. There is no pleural effusio n. There is no pericardial effusion. The spleen is not enlarged. The liver is normal in size and contour. Evaluation of the abdominal org ans is suboptimal in the absence of intravenous contrast. No calcified gallstone is identified. Unenh anced appearance of the pancreas is unremarkable. The adrenal glands are normal. The kidneys are clifford lar in size. There is no hydronephrosis of either kidney. No renal, ureteral, or bladder calculus is identified. The urinary bladder is unremarkable. The prostate and seminal vesicles are within marine l limits. The colonic stool burden is small. The appendix is normal. There is prominent inflammatory fat stranding about a proximal sigmoid diverticulum consistent with acute diverticulitis. There is no free fluid identified in the abdomen or pelvis. No pathologic lymphadenopathy is identified by size criteria. There is no abdominal aortic aneurysm. There is no pathologic distention of the small em l. No acute osseous abnormality is identified. IMPRESSION: Acute diverticulitis. No evidence of abscess.
--- NOTE | 2024-12-06 23:03 | DVHPN2 ---
Subjective The patient seen and examined at bedside. The patient still complain of abdominal pain. Reviewed: Care Plan, H&P, Labs, Medications, Previous Orders, Radiology Changes from previous H/P or p: No Changes Eyes: No Pain, No Vision change, No Conjunctivae inflammation, No Eyelid inflammation, No Other, No Redness ENT: No Ear pain, No Ear discharge, No Nose pain, No Nose discharge, No Nose congestion, No Mouth pain, No Mouth swelling, No Throat pain, No Throat swelling, No Other Cardiovascular: No Chest Pain, No Palpitations, No Orthopnea, No Paroxysmal Noc. Dyspnea, No Edema, No Lt Headedness, No Other Respiratory: No Cough, No Dry, No Shortness of breath, No SOB with excertion, No Wheezing, No Hemoptysis, No Pleuritic Pain, No Sputum, No Other Gastrointestinal: No Nausea, No Vomiting; Abdominal Pain; No Diarrhea, No Constipation, No Melena, No Hematochezia, No Other Genitourinary: No Dysuria, No Frequency, No Incontinence, No Hematuria, No Retention, No Other Musculoskeletal: No other, No neck pain, No shoulder pain, No arm pain; back pain; No hand pain, No leg pain, No foot pain Skin: No Rash, No Lesions, No Jaundice, No Bruising, No Other Objective Vitals Vital Signs Date Time Temp Pulse Resp B/P (MAP) Pulse Ox O2 Delivery O2 Flow Rate FiO2 12/06/24 21:00 98.4 74 20 111/70 (84) 95 98.4 12/06/24 20:00 Room Air* 0 21 Intake/Output Intake and Output 12/06/24 07:00 Intake Total 1310 ml Balance 1310 ml Intake Oral 1250 ml IV Total 60 ml # Voids 6 General Appearance: Alert, Oriented X3, Cooperative, No acute distress HEENT: Atraumatic, PERRLA, EOMI, Mucous membr. moist/pink Neck: Supple Lungs: Clear to auscultation, Normal air movement Cardiovascular: Regular rate, Normal S1, Normal S2, No murmurs, Gallops, Rubs Abdomen: Normal bowel sounds, Soft, No tenderness Neuro: Cranial nerves 3-12 NL Psych/Mental Status: Mental status NL Medications Current Medications Medications Dose Ordered Sig/Beto Route Start Time Stop Time Status Last Admin Dose Admin Hydralazine HCl 10 mg Q6HP PRN IV 12/04/24 01:15 Sodium Chloride 1,000 ml @ 60 mls/hr [id number] IV 12/04/24 01:15 12/06/24 03:05 60 MLS/HR Acetaminophen/ Hydrocodone Bitart 1 tab Q4HP PRN PO 12/04/24 01:15 12/04/24 08:02 1 TAB Ondansetron HCl 4 mg Q4HP PRN IV 12/04/24 01:15 Acetaminophen 650 mg Q6HP PRN PO 12/04/24 01:15 12/05/24 13:41 650 MG Morphine Sulfate 2 mg Q4HPRN PRN IV 12/04/24 01:15 Nitroglycerin 0.4 mg Q5MINP PRN SL 12/04/24 01:15 Morphine Sulfate 2 mg Q30M PRN IV 12/04/24 01:15 Ceftriaxone Sodium 50 ml @ 100 mls/hr DAILY@09 IV 12/04/24 16:00 12/06/24 09:22 100 MLS/HR Docusate Sodium 100 mg BID PO 12/05/24 22:00 12/06/24 21:40 100 MG Laboratory Results Laboratory Tests 12/06/24 06:03 Chemistry Test 12/06/24 06:03 Calcium Level 9.4 mg/dL (8.7-10.4) Urinalysis Test 12/03/24 23:49 Urine Color Light-yellow (Yellow) Urine Clarity Clear (Clear) Urine pH 6.5 (5.0-9.0) Urine Specific [place] 1.011 (1.001-1.035) Urine Protein Negative (Negative) Urine Ketones Negative (Negative) Urine Blood Negative /uL (Negative) Urine Nitrite Negative (Negative) Urine Bilirubin Negative (Negative) Urine Urobilinogen Normal mg/dL (Negative) Urine Leukocyte Esterase Negative /uL (Negative) Urine RBC <1 /hpf (0 - 3) Urine Microscopic WBC < 1 /HPF (0-3) Urine Squamous Epithelial Cells Few /hpf (<5) Urine Bacteria None seen /hpf (None Seen) Urine Glucose Normal mg/dL (Normal) Labs and/or images reviewed: Labs reviewed by me Assessment/Plan Assessment/Plan Intractable abdominal pain Appendicitis Acute diverticulitis Leukocytosis, unspecified Continuing current management. Continuing with IV antibiotic. Appreciate GI input. Outpatient colonoscopy. Continuing IV pain medication. Waiting for surgeon input to see if patient need any surgery intervention. This medical document was created using an electronic medical record system with [employer] direct computerized dictation system. Although this document has been carefully reviewed, there may still be some phonetic and typographical errors. These areas are purely typographical due to imperfections of the software programs, and do not reflect any compromise in the patient's medical care. Plan discussed with: Patient My Orders Orders - MARQUES SHELTON MD Procedure Category Date Status Time Complete Blood Count LAB 12/07/24 Verified 05:00 Complete Blood Count LAB 12/08/24 Verified 05:00 Complete Blood Count LAB 12/09/24 Verified 05:00 Complete Blood Count LAB 12/10/24 Verified 05:00 Basic Metabolic Panel LAB 12/07/24 Verified 05:00 Basic Metabolic Panel LAB 12/08/24 Verified 05:00 Basic Metabolic Panel LAB 12/09/24 Verified 05:00 Basic Metabolic Panel LAB 12/10/24 Verified 05:00 Date of Service: Dec 06, 2024 Billing Provider: MARQUES SHELTON MD Common Visit Codes: [id number] INP/OBS CARE(HIGH) MARQUES SHELTON MD Dec 06, 2024 23:03
[2024-12-07 01:00] VITALS: BP 122/69; PULSE 65; RESP 20; TEMP 98.4; O2SAT 97
[2024-12-07 05:00] VITALS: BP 103/65; PULSE 66; RESP 18; TEMP 97.6; O2SAT 96
[2024-12-07 05:20] LABS: Hematocrit 44.2 % (41.0-53.0); Hemoglobin 15.3 g/dL (13.5-17.5); Mean Corpuscular Hemoglobin 30.3 pg (28.0-32.0); Mean Corpuscular Volume 87.5 fL (80.0-100.0); Nucleated Red Blood Cells % 0.0 %
[2024-12-07 05:24] LABS: Calcium 9.4 mg/dL (8.7-10.4); Chloride 103 mmol/L (98-107); Potassium 4.4 mmol/L (3.5-5.1); Sodium 140 mmol/L (136-145)
[2024-12-07 05:25] LABS: Anion Gap 11 (5-15); Carbon Dioxide 26 mmol/L (20-31)
[2024-12-07 05:30] LABS: BUN/Creatinine Ratio 9.3 (10.0-20.0); Blood Urea Nitrogen 7 mg/dL (9-23); Glucose 87 mg/dL (74-106)
[2024-12-07 08:00] VITALS: PULSE 78; RESP 20; O2SAT 97
[2024-12-07 09:00] VITALS: BP 120/76; PULSE 76; RESP 12; TEMP 98.1; O2SAT 96
--- NOTE | 2024-12-07 11:09 | DVHPN2 ---
Subjective The patient seen and examined at bedside. The patient still complain of abdominal pain. Reviewed: Care Plan, H&P, Labs, Medications, Previous Orders, Radiology Eyes: No Pain, No Vision change, No Conjunctivae inflammation, No Eyelid inflammation, No Other, No Redness ENT: No Ear pain, No Ear discharge, No Nose pain, No Nose discharge, No Nose congestion, No Mouth pain, No Mouth swelling, No Throat pain, No Throat swelling, No Other Cardiovascular: No Chest Pain, No Palpitations, No Orthopnea, No Paroxysmal Noc. Dyspnea, No Edema, No Lt Headedness, No Other Respiratory: No Cough, No Dry, No Shortness of breath, No SOB with excertion, No Wheezing, No Hemoptysis, No Pleuritic Pain, No Sputum, No Other Gastrointestinal: No Nausea, No Vomiting; Abdominal Pain; No Diarrhea, No Constipation, No Melena, No Hematochezia, No Other Genitourinary: No Dysuria, No Frequency, No Incontinence, No Hematuria, No Retention, No Other Musculoskeletal: No other, No neck pain, No shoulder pain, No arm pain; back pain; No hand pain, No leg pain, No foot pain Skin: No Rash, No Lesions, No Jaundice, No Bruising, No Other Objective Vitals Vital Signs Date Time Temp Pulse Resp B/P (MAP) Pulse Ox O2 Delivery O2 Flow Rate FiO2 12/07/24 09:00 98.1 76 12 120/76 (91) 96 98.1 12/07/24 08:00 Room Air* 0 21 Intake/Output Intake and Output 12/07/24 06:59 Intake Total 2558 ml Balance 2558 ml Intake Oral 2148 ml IV Total 410 ml # Voids 6 # Bowel Movements 1 General Appearance: Alert, Oriented X3, Cooperative, No acute distress HEENT: Atraumatic, PERRLA, EOMI, Mucous membr. moist/pink Neck: Supple Lungs: Clear to auscultation, Normal air movement Cardiovascular: Regular rate, Normal S1, Normal S2, No murmurs, Gallops, Rubs Abdomen: Normal bowel sounds, Soft, No tenderness Neuro: Cranial nerves 3-12 NL Psych/Mental Status: Mental status NL Medications Current Medications Medications Dose Ordered Sig/Beto Route Start Time Stop Time Status Last Admin Dose Admin Hydralazine HCl 10 mg Q6HP PRN IV 12/04/24 01:15 Sodium Chloride 1,000 ml @ 60 mls/hr [id number] IV 12/04/24 01:15 12/06/24 03:05 60 MLS/HR Acetaminophen/ Hydrocodone Bitart 1 tab Q4HP PRN PO 12/04/24 01:15 12/04/24 08:02 1 TAB Ondansetron HCl 4 mg Q4HP PRN IV 12/04/24 01:15 Acetaminophen 650 mg Q6HP PRN PO 12/04/24 01:15 12/05/24 13:41 650 MG Morphine Sulfate 2 mg Q4HPRN PRN IV 12/04/24 01:15 Nitroglycerin 0.4 mg Q5MINP PRN SL 12/04/24 01:15 Morphine Sulfate 2 mg Q30M PRN IV 12/04/24 01:15 Ceftriaxone Sodium 50 ml @ 100 mls/hr DAILY@09 IV 12/04/24 16:00 12/07/24 09:00 100 MLS/HR Docusate Sodium 100 mg BID PO 12/05/24 22:00 12/07/24 09:00 100 MG Laboratory Results Laboratory Tests 12/07/24 04:23 Chemistry Test 12/07/24 04:23 Calcium Level 9.4 mg/dL (8.7-10.4) Urinalysis Test 12/03/24 23:49 Urine Color Light-yellow (Yellow) Urine Clarity Clear (Clear) Urine pH 6.5 (5.0-9.0) Urine Specific [place] 1.011 (1.001-1.035) Urine Protein Negative (Negative) Urine Ketones Negative (Negative) Urine Blood Negative /uL (Negative) Urine Nitrite Negative (Negative) Urine Bilirubin Negative (Negative) Urine Urobilinogen Normal mg/dL (Negative) Urine Leukocyte Esterase Negative /uL (Negative) Urine RBC <1 /hpf (0 - 3) Urine Microscopic WBC < 1 /HPF (0-3) Urine Squamous Epithelial Cells Few /hpf (<5) Urine Bacteria None seen /hpf (None Seen) Urine Glucose Normal mg/dL (Normal) Assessment/Plan Assessment/Plan Intractable abdominal pain Appendicitis Acute diverticulitis Leukocytosis, unspecified Continuing current management. Continuing with IV antibiotic. Appreciate GI input. Outpatient colonoscopy. Continuing IV pain medication. Waiting for surgeon input to see if patient need any surgery intervention. This medical document was created using an electronic medical record system with [employer] direct computerized dictation system. Although this document has been carefully reviewed, there may still be some phonetic and typographical errors. These areas are purely typographical due to imperfections of the software programs, and do not reflect any compromise in the patient's medical care. MARQUES SHELTON MD Dec 07, 2024 11:09
[2024-12-07] MEDS ORDERED: HYDR-4902 PO (12:40)
[2024-12-07] MEDS ORDERED: METR-344 PO (12:40)
[2024-12-07] MEDS ORDERED: LEVO500T91 PO (12:40)
--- NOTE | 2024-12-07 12:42 | DVHDS2 ---
Discharge Summary Date of Admission Dec 04, 2024 at 01:09 Date of Discharge: Dec 07, 2024 Admitting Diagnosis Intractable abdominal pain Appendicitis Acute diverticulitis Leukocytosis, unspecified Labs/Diagnostic Data: Laboratory Results Test 12/07/24 04:23 12/05/24 15:19 12/05/24 06:20 12/03/24 23:49 White Blood Count 8.1 10^3/uL (4.4-10.8) Red Blood Count 5.05 10^6/uL (4.5-5.90) Hemoglobin 15.3 g/dL (13.5-17.5) Hematocrit 44.2 % (41.0-53.0) Mean Corpuscular Volume 87.5 fL (80.0-100.0) Mean Corpuscular Hemoglobin 30.3 pg (28.0-32.0) Mean Corpuscular Hemoglobin Concent 34.6 g/dL (32.0-36.0) Red Cell Distribution Width 13.6 % (11.8-14.3) Platelet Count 312 10^3/uL (140-450) Mean Platelet Volume 7.7 fL (6.9-10.8) Neutrophils (%) (Auto) 60.0 % (37.0-80.0) Lymphocytes (%) (Auto) 26.5 % (10.0-50.0) Monocytes (%) (Auto) 10.1 % (0.0-12.0) Eosinophils (%) (Auto) 2.8 % (0.0-7.0) Basophils (%) (Auto) 0.6 % (0.0-2.0) Neutrophils # (Auto) 4.8 10 ^3/uL (1.6-8.6) Lymphocytes # (Auto) 2.1 10 ^3/uL (0.4-5.4) Monocytes # (Auto) 0.8 10 ^3/uL (0-1.3) Eosinophils # (Auto) 0.2 10 ^3/uL (0-0.8) Basophils # (Auto) 0 10 ^3/uL (0-0.2) Nucleated Red Blood Cells 0.0 % Sodium Level 140 mmol/L (136-145) Potassium Level 4.4 mmol/L (3.5-5.1) Chloride Level 103 mmol/L (98-107) Carbon Dioxide Level 26 mmol/L (20-31) Anion Gap 11 (5-15) Blood Urea Nitrogen 7 mg/dL (9-23) Creatinine 0.75 mg/dL (0.700-1.30) Glomerular Filtration Rate Calc 107 mL/min (>90) BUN/Creatinine Ratio 9.3 (10.0-20.0) Serum Glucose 87 mg/dL (74-106) Calcium Level 9.4 mg/dL (8.7-10.4) Lactic Acid Level 0.8 mmol/L (0.4-2.0) Total Bilirubin 0.6 mg/dL (0.2-1.0) Aspartate Amino Transferase (AST) 16 U/L (13-40) Alanine Aminotransferase (ALT) 24 U/L (7-40) Alkaline Phosphatase 76 U/L (46-116) Total Protein 7.5 g/dL (5.7-8.2) Albumin 4.5 g/dL (3.2-4.8) Urine Color Light-yellow (Yellow) Urine Clarity Clear (Clear) Urine pH 6.5 (5.0-9.0) Urine Specific [place] 1.011 (1.001-1.035) Urine Protein Negative (Negative) Urine Ketones Negative (Negative) Urine Blood Negative /uL (Negative) Urine Nitrite Negative (Negative) Urine Bilirubin Negative (Negative) Urine Urobilinogen Normal mg/dL (Negative) Urine Leukocyte Esterase Negative /uL (Negative) Urine RBC <1 /hpf (0 - 3) Urine Microscopic WBC < 1 /HPF (0-3) Urine Squamous Epithelial Cells Few /hpf (<5) Urine Bacteria None seen /hpf (None Seen) Urine Glucose Normal mg/dL (Normal) Test 12/03/24 17:23 Lipase 37 U/L (12-53) Other Laboratory Tests 12/07/24 04:23 Brief Hx & Hospital Course: This is a 54 years old male with past medical history of hyperlipidemia, hypertension come to emergency department because severe abdominal pain. His abdominal pain is a lower both right and left quadrant, radiating to his back for two days. Rating 6/10. The patient was evaluated in emergency department. The lab showed WBC of 13.[address] scan of abdomen pelvis showed: inflammatory stranding along the mesenteric margin of the mid sigmoid colon compatible with epiploic appendicitis versus diverticulitis. The patient was admitted. The patient was started on Rocephin and Flagyl IV. GI specialist in surgeon was consulted. The patient subsequently had another CT scan done on 0 12/06/2024 showed acute diverticulitis. No evidence of appendicitis. His symptom improved. No nausea or vomiting. Abdominal pain improved. Patient moved bowel movement. The patient will be discharged home today with Levaquin and Flagyl for 10 more days. Advised the patient to follow up with GI specialist when diverticulitis resolved to have a colonoscopy done as outpatient. Activity as tolerated. Diet per home diet. Follow up with primary care physician 1-2 weeks. Physical exam HEENT: Normocephalic atraumatic pupils equal react to light and accommodation. Extraocular muscles intact, conjunctiva pink, oropharynx moist, no thrush, no exudate. Lymphatic: No lymphadenopathy Cardiovascular exam: S1, S2 was heard. No murmurs, rubs, gallops Lung: Clear on auscultation bilaterally, no wheeze, rale, rhonchi. GI: Abdominal soft, nondistended, nontenderness, positive bowel sounds. Extremity: No crepitus, cyanosis, edema. Pedal pulses present bilateral. Full range of motion. Skin: Normal turgor, no rash. Psych: Alert, oriented x3. Neurology: No focal deficits, cranial nerve II to XII grossly intact. This medical document was created using an electronic medical record system with [employer] direct computerized dictation system. Although this document has been carefully reviewed, there may still be some phonetic and typographical errors. These areas are purely typographical due to imperfections of the software programs, and do not reflect any compromise in the patient's medical care. Condition at Discharge: Stable Final Diagnosis/Problems List Intractable abdominal pain Appendicitis Acute diverticulitis Leukocytosis, unspecified Discharge Disposition: Home Discharge Instruct/Medications Diet: Regular Activity: No Restrictions, As Tolerated Follow Up/Referral: pcp 1-2 weeks Medications: see med list Scheduled Levofloxacin Hemihydrate (Levaquin 500 Mg), 1 TAB PO DAILY Metronidazole (Flagyl), 1 TAB PO TID Scheduled PRN Hydrocodone-Acetaminophen (Hydrocodone Bitartrate/AC 5-325 mg), 1 TAB PO Q4HP PRN Discharge Statement: "Patient was advised to return to the ER or call 911 if any headaches, dizziness, shortness of breath, chest pain, abdominal pain, bleeding, fevers, or worsening of medical condition. Patient was counseled about treatment plan, medications, possible side effects, patientverbalized understanding. All questions were answered to the best of my ability. This discharge took greater then 30 minutes in planning, reviewing documentation, counseling the patient, and discussing with other team members." ASSESSMENT ASSESSMENT Assessment colitis SBO Date of Service: Dec 07, 2024 Billing Provider: MARQUES SHELTON MD Common Visit Codes: [id number]/OBS DISCH DAY >30min MARQUES SHELTON MD Dec 07, 2024 12:42
[2024-12-07 12:49] VITALS: BP 124/87; PULSE 81; RESP 16; TEMP 98.3; O2SAT 96
[2024-12-07 14:44] VITALS: BP 118/74; PULSE 68; RESP 18; TEMP 98.7; O2SAT 94
== END 2024-12-07 15:30 | disposition home or self-care (01) | DRG 244 ==
LOC: ER 15:22 → OVERFLOW 12-04 01:09 → WEST WING 12-04 03:52
PROVIDERS: ADMIT Internal Medicine; ATTEND Internal Medicine
DX: K57.32 Diverticulitis of large intestine without perforation or abscess without bleeding (principal); D72.829 Elevated white blood cell count, unspecified; E78.5 Hyperlipidemia, unspecified; I10 Essential (primary) hypertension; Z87.891 Personal history of nicotine dependence; Z83.3 Family history of diabetes mellitus; Z82.49 Family history of ischemic heart disease and other diseases of the circulatory system
CPT/HCPCS: 36415; 74176; 80048; 80053; 81001; 83605; 83690; 85025; 96365; 96375; G0378; J1885; J2405; J3490

== ENCOUNTER 2025-02-04 10:18 | Emergency (ER) | payer MEDICAID ==
[~2025-02-04] VITALS: Ht 180.3 cm; Wt 97.1 kg
[~2025-02-04 10:18] MED LIST: HYDR-4902 PO; LEVO500T91 PO; METR-344 PO
--- NOTE | 2025-02-04 11:06 | ED.PDOC ---
GI ASSESSMENT HPI Comments A 55 YEAR OLD MALE PRESENTS TO THE ED WITH COMPLAINT OF LEFT SIDED ABDOMINAL PAIN. PATIENT STATES HE HAS A HISTORY OF DIVERTICULITIS WITH A MICRO-PERFORATION 2 MONTHS AGO AND WAS TREATED AT [facility] WHERE NO SURGERY WAS DONE AND HE RECEIVED IV ANTIBIOTIC TREATMENT, AND STATES HIS SYMPTOMS GOT BETTER AFTER. PATIENT REPORTS HIS LEFT-SIDED ABDOMINAL PAIN RETURNED OVER THE PAST 2 DAYS, PROMPTING HIM TO COME TO THE ED TODAY FOR EVALUATION. PATIENT WOULD LIKE TO MAKE SURE HE DOES NOT HAVE DIVERTICULITIS AGAIN. PATIENT DENIES FEVER, CHILLS, SHORTNESS OF BREATH, CHEST PAIN, NAUSEA, VOMITING, HEADACHE, OR OTHER COMPLAINTS. NO OTHER SYMPTOMS OR MODIFYING FACTORS AT THIS TIME. PATIENT IS ALERT, ORIENTED X 4, AND HAS STEADY GAIT. Chief Complaint: Abdominal Pain Time Seen by MD: 10:24 Primary Care Provider: NONE Reviewed Notes: Nurses Notes, Medications, Allergies Allergies: Coded Allergies: NO KNOWN ALLERGIES (Unverified , 07/27/13) Home Meds Active Scripts Tramadol HCl (Tramadol HCl) 50 Mg Tab, 50 MG PO BID, #20 TAB Prov:IAN ANDERSON 02/04/25 Metronidazole (Flagyl) 500 Mg Tab, 1 TAB PO BID, #14 TAB Prov:IAN ANDERSON 02/04/25 Ciprofloxacin Hcl (Cipro) 500 Mg Tab, 1 TAB PO BID, #20 TAB Prov:IAN ANDERSON 02/04/25 Hydrocodone-Acetaminophen (Hydrocodone Bitartrate/AC 5-325 mg) 1 Tab Tab, 1 TAB PO Q4HP PRN, #10 TAB Prov:MARQUES SHELTON MD 12/07/24 Metronidazole (Flagyl) 500 Mg Tab, 1 TAB PO TID, #30 TAB Prov:MARQUES SHELTON MD 12/07/24 Levofloxacin Hemihydrate (LEVAQUIN 500 MG) 500 Mg Tab, 1 TAB PO DAILY, #10 TAB Prov:MARQUES SHELTON MD 12/07/24 Information Source: Patient Mode of Arrival: Ambulatory Timing: Days Duration: Since onset, Days Prehospital treatment: None Quality: Aching, Cramping, Colicky Vomitus: None Stool: Normal Severity: Mild, Moderate Recent: None Recent Hx of: None Pain Location: LLQ Modifying Factors: Nothing Associated sign and symptoms: Abdominal Pain Past Medical History PAST MEDICAL HISTORY: High Lipids, HTN Past Medical History (Other): DIVERTICULITIS Surgical History: Denies all surgeries Family History Family History: Reviewed,noncontributory to illness, No family hx of DM Family History (Other): HLD Social History Smoker: Quit Greater Than 1 Year Alcohol: Denies ETOH Use Drugs: Denies Drug Use Lives In: Home Constitutional: denies: chills, diaphoresis, fatigue, fever, malaise, sweats, weakness, others EENTM: denies: blurred vision, double vision, ear bleeding, ear discharge, ear drainage, ear pain, ear ringing, eye pain, eye redness, hearing loss, mouth pain, mouth swelling, nasal discharge, nose bleeding, nose congestion, nose pain, photophobia, tearing, throat pain, throat swelling, voice changes, others Respiratory: denies: cough, hemoptysis, orthopnea, SOB at rest, shortness of breath, SOB with excertion, stridor, wheezing, others Cardiovascular: denies: chest pain, dizzy spells, diaphoresis, Dyspnea on exertion, edema, irregular heart beat, left arm pain, lightheadedness, palpitations, PND, syncope, others Gastrointestinal: reports: abdominal pain; denies: abdomen distended, blood streaked bowels, constipated, diarrhea, dysphagia, difficulty swallowing, hematemesis, melena, nausea, poor appetite, poor fluid intake, rectal bleeding, rectal pain, vomiting, others Genitourinary: denies: burning, dysuria, flank pain, frequency, hematuria, incontinence, penile discharge, penile sore, pain, testicle pain, testicle swelling, urgency, others Neurological: denies: dizziness, fainting, headache, left sided numbness, left sided weakness, numbness, paresthesia, pre-existing deficit, right sided numbness, right sided weakness, seizure, speech problems, tingling, tremors, weakness, others Musculoskeletal: denies: back pain, gout, joint pain, joint swelling, muscle pain, muscle stiffness, neck pain, others Integumetry: denies: bruises, change in color, change in hair/nails, dryness, laceration, lesions, lumps, rash, wounds, others Allergic/Immunocompromised: denies: Difficulty Healing, Frequent Infections, Hives, Itching, others Hematologic/Lymphatic: denies: anemia, blood clots, easy bleeding, easy bruising, swollen glands, others Endocrine: denies: excessive hunger, excessive sweating, excessive thirst, excessive urination, flushing, intolerance to cold, intolerance to heat, unexplained weight gain, unexplained weight loss, others Psychiatric: denies: anxiety, bipolar disorder, depression, hopeless, panic disorder, schizophrenia, sleepless, suicidal, others All Other Systems: Reviewed and Negative Physical Exam General Appearance: No Apparent Distress, Normal HEENT: Normal ENT Inspection, PERRL/EOMI, Pharynx Normal, TMs Normal Neck: Full Range of Motion, Non-Tender, Normal, Normal Inspection Respiratory: Chest Non-Tender, Lungs Clear, No Accessory Muscle Use, No Respiratory Distress, Normal Breath Sounds Cardiovascular: No Edema, No JVD, No Murmur, No Gallop, Normal Peripheral Pulses, Regular Rate/Rhythm Breast Exam: Deferred Gastrointestinal: LLQ, No Organomegaly, Non Tender, No Pulsatile Mass, Normal Bowel Sounds, Soft, Tenderness (LEFT LOWER ABD, NO GUARDING AND REBOUND TENDERNESS. ) Genitalia: Deferred Pelvic: Deferred Rectal: Deferred Extremities: No calf tenderness, Normal capillary refill, Normal inspection, Normal range of motion, Non-tender, No pedal edema Musculoskeletal : Apperance: Normal Neurologic: Alert, audio visual director II-XII nml as Tested, No Motor Deficits, Normal Affect, Normal Mood, No Sensory Deficits Cerebellar Function: Normal Reflexes: Normal Skin: Dry, Normal Color, Warm Peripheral Pulses: 2+ carotid (R), 2+ carotid (L), 2+ dorsalis pedis (R), 2+ dorsalis pedis (L) Lymphatic: No Adenopathy Was a procedure done? Was a procedure done?: No GI differential Dx Differential Diagnosis: Bowel Obstruction, Constipation, Diverticular disease, Gastritis/PUD, Kidney Stone X-Ray, Labs, Meds, VS Vital Signs Date Time Temp Pulse Resp B/P (MAP) Pulse Ox O2 Delivery O2 Flow Rate FiO2 02/04/25 10:22 98.4 78 18 146/83 98 98.4 Lab Test 02/04/25 10:54 Range/Units White Blood Count 5.7 4.4-10.8 10^3/uL Red Blood Count 5.26 4.5-5.90 10^6/uL Hemoglobin 15.5 13.5-17.5 g/dL Hematocrit 46.1 41.0-53.0 % Mean Corpuscular Volume 87.7 80.0-100.0 fL Mean Corpuscular Hemoglobin 29.4 28.0-32.0 pg Mean Corpuscular Hemoglobin Concent 33.6 32.0-36.0 g/dL Red Cell Distribution Width 14.6 H 11.8-14.3 % Platelet Count 290 140-450 10^3/uL Mean Platelet Volume 8.1 6.9-10.8 fL Neutrophils (%) (Auto) 59.6 37.0-80.0 % Lymphocytes (%) (Auto) 28.7 10.0-50.0 % Monocytes (%) (Auto) 9.0 0.0-12.0 % Eosinophils (%) (Auto) 1.8 0.0-7.0 % Basophils (%) (Auto) 0.9 0.0-2.0 % Neutrophils # (Auto) 3.4 1.6-8.6 10 ^3/uL Lymphocytes # (Auto) 1.7 0.4-5.4 10 ^3/uL Monocytes # (Auto) 0.5 0-1.3 10 ^3/uL Eosinophils # (Auto) 0.1 0-0.8 10 ^3/uL Basophils # (Auto) 0 0-0.2 10 ^3/uL Nucleated Red Blood Cells 0.1 % Sodium Level 141 136-145 mmol/L Potassium Level 4.3 3.5-5.1 mmol/L Chloride Level 104 98-107 mmol/L Carbon Dioxide Level 25 20-31 mmol/L Anion Gap 12 5-15 Blood Urea Nitrogen 8 L 9-23 mg/dL Creatinine 0.69 L 0.700-1.30 mg/dL Glomerular Filtration Rate Calc 109 >90 mL/min BUN/Creatinine Ratio 11.6 10.0-20.0 Serum Glucose 96 74-106 mg/dL Calcium Level 10.0 8.7-10.4 mg/dL CLINICAL INFORMATION: Left lower abdominal pain. History of diverticulitis TECHNIQUE: Axial CT images of the abdomen and pelvis were obtained without IV contrast. Coronal and sagittal reformatted images were obtained, reviewed, and stored. Evaluation of the parenchymal organs is limited without IV contrast. Evaluation of the bowel and mesentery is limited without oral contrast. All CT scans at this medical facility are performed using dose modulation techniques as appropriate to a performed exam including the following: Automated exposure control was utilized; adjustment of the MA and/or KV according to patient size; and use of iterative reconstruction technique. CTDIvol = 14.02 mGy DLP = 815.71 mGy-cm COMPARISON: CT CT AB PEL WITH ORAL CON ONLY on DOS: 12/06/24, CT CT AB PEL WO CON-NO ORAL OR IV on DOS: 12/03/24 FINDINGS: Lung bases: Lung bases are clear. Liver: Grossly unremarkable in its noncontrast enhanced appearance. No abnormal density or focal lesion identified. Biliary: No calcified gallstones or biliary ductal dilatation. Spleen: Unremarkable. Pancreas: Grossly unremarkable in its noncontrast enhanced appearance. Adrenal glands: Unremarkable. No mass. Kidneys: No hydronephrosis. No renal or ureteral calculi. Aorta/Vascular: Mild atherosclerotic calcification. No abdominal aortic aneurysm. Lymph nodes: No mass or lymphadenopathy. Bowel/mesentery: No small bowel obstruction. No free air or free fluid. Appendix is visualized and appears unremarkable. There are scattered colonic diverticula, most prominent involving the sigmoid colon. Wall thickening of the sigmoid colon, likely due to chronic diverticular disease. There is mild vascular engorgement at the sigmoid colon without definite inflammatory stranding to confirm acute diverticulitis. No evidence of perforation or abscess. Pelvic organs: Grossly unremarkable. Bladder: Unremarkable. No mass. Abdominal wall: Small bilateral fat containing indirect inguinal hernias. Bones: No acute fracture or suspicious intraosseous lesion. IMPRESSION: 1. Colonic diverticulosis, most prominent involving the sigmoid colon. There is wall thickening and mild vascular engorgement involving the sigmoid colon, although no definite adjacent inflammatory stranding to confirm acute diverticulitis. Correlate with clinical findings. 2. Small bilateral fat containing indirect inguinal hernias, unchanged. 3. Additional findings as described above. ATED BY: CHICO SO DO DICTATED DATE/TIME: 02/04/251119 SIGNED BY: CHICO SO DO SIGNED DATE/TIME: 02/04/251119 CC: X-Ray, Labs, Meds, VS Comment EXTERNAL MEDICAL RECORDS REVIEWED: [NONE] INDEPENDENT HISTORIANS: [NONE] SOCIAL DETERMINANTS OF HEALTH: [NONE] LABS ORDERED: CBC, BMP, UA REVIEWED AND INTERPRETED RESULTS: NORMAL IMAGING ORDERED: CT ABD/PEL TREATMENTS ORDERED: PROCEDURES PERFORMED: NONE CRITICAL CARE TIME: NONE I HAVE DISCUSSED THE PATIENT WITH THE ATTENDING PHYSICIAN DR. ANGUIANO AND HE AGREES WITH THE PATIENT'S PLAN OF CARE AND DISPOSITION. BASED ON HISTORY OF PRESENT ILLNESS, AND PHYSICAL EXAM, PATIENT WILL BE DISCHARGED HOME. DISCUSSED PLAN FOR DISCHARGE HOME WITH RX [ULTRAM, CIPRO 500 MG, AND FLAGYL 500 MG]. MEDICATION WARNINGS GIVEN. SHARED DECISION MAKING: DISCUSSED WITH PATIENT THAT THEIR WORKUP WAS NORMAL. PATIENT INSTRUCTED TO FOLLOW UP WITH PRIMARY CARE PROVIDER IN 1-2 DAYS FOR RE- EVALUATION OF SYMPTOMS. PATIENT VERBALIZES UNDERSTANDING TO RETURN TO ED FOR NEW OR WORSENING SYMPTOMS OR IF FOLLOW UP WITH PCP CANNOT BE OBTAINED. PATIENT FEELS COMFORTABLE GOING HOME AT THIS TIME. ALL QUESTIONS ADDRESSED AT TIME OF DISCHARGE. Images Reviewed?: Images reviewed and evaluated by me Time of 1ST Reevaluation: 12:08 Reevaluation 1ST: Improved Patient Education/Counseling: Diagnosis, Treatment, Need For Follow Up Family Education/Counseling: Diagnosis, Treatment, Need For Follow Up Medical Screening: No EMC Exist At This Time SEPSIS Sepsis Screen Date sepsis recognized/suspect: Feb 04, 2025 Time Sepsis recognized/suspect: 1023 Recent Procedure: No (T) On Antibiotic Therapy: No (N) Respiratory Rate >20: No Heart Rate >90: No Temp<36 C (96.8 F) or >38.3 C: No SBP <90 or MAP <65 mmHG: No New Acute Mental Status Change: No Is the patient on CPAP, BIPAP,: No Physician Orders Urinalysis (02/04/25 10:41) Ct Ab Pel Wo Con-No Oral Or Iv (02/04/25 10:41) Vital Signs Date Time Temp Pulse Resp B/P (MAP) Pulse Ox O2 Delivery O2 Flow Rate FiO2 02/04/25 10:22 98.4 78 18 146/83 98 98.4 Laboratory Tests Test 02/04/25 10:54 White Blood Count 5.7 10^3/uL (4.4-10.8) Departure 1 Departure Time of Disposition: 12:08 Impression: Primary Impression: Diverticulosis Disposition: 01 HOME / SELF CARE / HOMELESS Condition: Stable Additional Instructions: FOLLOW-UP WITH PCP IN 1 TO 2 DAYS. TAKE MEDICATIONS PRESCRIBED. RETURN TO ED FOR ANY NEW OR WORSENING SYMPTOMS. e-Prescriptions Tramadol HCl (Tramadol HCl) 50 Mg Tab 50 MG PO BID, #20 TAB Prov: IAN ANDERSON 02/04/25 Metronidazole (Flagyl) 500 Mg Tab 1 TAB PO BID, #14 TAB Prov: IAN ANDERSON 02/04/25 Ciprofloxacin Hcl (Cipro) 500 Mg Tab 1 TAB PO BID, #20 TAB Prov: IAN ANDERSON 02/04/25 Discharged With: Self, Spouse Critical Care Note Critical Care Time?: No Stability Stability form required: No I personally scribed for IAN ANDERSON ([email or web address]) on 02/04/25 at 11:06. Electronically submitted by Antony Ross ([employer]). I personally scribed for IAN ANDERSON ([email or web address]) on 02/04/25 at 11:41. Electronically submitted by Antony Ross ([employer]). I personally scribed for IAN ANDERSON ([email or web address]) on 02/04/25 at 12:00. Electronically submitted by Antony Ross ([employer]). I personally scribed for IAN ANDERSON ([email or web address]) on 02/04/25 at 12:05. Electronically submitted by Antony Ross ([employer]). IAN ANDERSON Feb 04, 2025 11:06
--- NOTE | 2025-02-04 11:23 | DVH ---
CLINICAL INFORMATION: Left lower abdominal pain. History of diverticulitis TECHNIQUE: Axial CT images of the abdomen and pelvis were obtained without IV contrast. Coronal and sagittal reformatted images were obtained, reviewed, and stored. Evaluation of the parenchymal organs is limited without IV contrast. Evaluation of the bowel and mesentery is limited without oral contrast. All CT scans at this medical facility are performed using dose modulation techniques as appropriate to a performed exam including the following: Automated exposure control was utilized; adjustment of the MA and/or KV according to patient size; and use of iterative reconstruction technique. CTDIvol = 14.02 mGy DLP = 815.71 mGy-cm COMPARISON: CT CT AB PEL WITH ORAL CON ONLY on DOS: 12/06/24, CT CT AB PEL WO CON-NO ORAL OR IV on DOS: 12/03/24 FINDINGS: Lung bases: Lung bases are clear. Liver: Grossly unremarkable in its noncontrast enhanced appearance. No abnormal density or focal lesion identified. Biliary: No calcified gallstones or biliary ductal dilatation. Spleen: Unremarkable. Pancreas: Grossly unremarkable in its noncontrast enhanced appearance. Adrenal glands: Unremarkable. No mass. Kidneys: No hydronephrosis. No renal or ureteral calculi. Aorta/Vascular: Mild atherosclerotic calcification. No abdominal aortic aneurysm. Lymph nodes: No mass or lymphadenopathy. Bowel/mesentery: No small bowel obstruction. No free air or free fluid. Appendix is visualized and appears unremarkable. There are scattered colonic diverticula, most prominent involving the sigmoid colon. Wall thickening of the sigmoid colon, likely due to chronic diverticular disease. There is mild vascular engorgement at the sigmoid colon without definite inflammatory stranding to confirm acute diverticulitis. No evidence of perforation or abscess. Pelvic organs: Grossly unremarkable. Bladder: Unremarkable. No mass. Abdominal wall: Small bilateral fat containing indirect inguinal hernias. Bones: No acute fracture or suspicious intraosseous lesion. IMPRESSION: 1. Colonic diverticulosis, most prominent involving the sigmoid colon. There is wall thickening and mild vascular engorgement involving the sigmoid colon, although no definite adjacent inflammatory stranding to confirm acute diverticulitis. Correlate with clinical findings. 2. Small bilateral fat containing indirect inguinal hernias, unchanged. 3. Additional findings as described above.
[2025-02-04 11:37] LABS: Hematocrit 46.1 % (41.0-53.0); Hemoglobin 15.5 g/dL (13.5-17.5); Mean Corpuscular Hemoglobin 29.4 pg (28.0-32.0); Mean Corpuscular Volume 87.7 fL (80.0-100.0); Nucleated Red Blood Cells % 0.1 %
[2025-02-04 11:38] LABS: Chloride 104 mmol/L (98-107); Potassium 4.3 mmol/L (3.5-5.1); Sodium 141 mmol/L (136-145)
[2025-02-04 11:39] LABS: Anion Gap 12 (5-15); Carbon Dioxide 25 mmol/L (20-31)
[2025-02-04 11:40] LABS: Calcium 10.0 mg/dL (8.7-10.4)
[2025-02-04 11:45] LABS: BUN/Creatinine Ratio 11.6 (10.0-20.0); Glucose 96 mg/dL (74-106)
[2025-02-04 11:49] LABS: Blood Urea Nitrogen 8 mg/dL (9-23)
[2025-02-04] MEDS ORDERED: METR-344 PO (12:07)
[2025-02-04] MEDS ORDERED: TRAM-626 PO (12:07)
[2025-02-04] MEDS ORDERED: CIPR-173 PO (12:07)
[2025-02-04 12:08] VITALS: BP 127/74; PULSE 81; RESP 18; TEMP 99.9; O2SAT 96
[2025-02-04 12:48] LABS: Urine Protein, UAD Negative (Negative)
== END 2025-02-04 12:11 | disposition home or self-care (01) ==
LOC: ER 10:18
DX: K57.30 Diverticulosis of large intestine without perforation or abscess without bleeding (principal); I10 Essential (primary) hypertension; E78.5 Hyperlipidemia, unspecified; Z79.899 Other long term (current) drug therapy; Z87.891 Personal history of nicotine dependence
CPT/HCPCS: 36415; 74176; 80048; 81001; 85025